=== PATIENT | male | born 1985 | race Caucasian/White ===

== ENCOUNTER 2017-09-20 13:23 | Inpatient (IN) | payer OTHER ==
[2017-09-20] MEDS ORDERED: SODIUM CHLORIDE 1,000 ML IV STA ×2 (14:11→15:32)
--- NOTE | 2017-09-20 14:11 | PDOC ---
History of Present Illness <Sade Walter - Last Filed: 09/20/17 16:56> - History of Present Illness Initial Comments: 09/20/17 14:28 The patient is a 32 year old male with a history of HLD, Elevated liver enzymes s/p cholecystectomy who presents for evaluation of abdominal pain. The patient reports a 1 day history of nausea and multiple episodes of non-bilious, non- bloody vomiting with associated epigastric and RUQ abdominal pain. The patient has had prior presentations with similar symptoms and follows with Dr. Khan. The patient notes that he has had CBD stents in the past, but none currently. The patient noted fevers at home to 103 prompting his presentation to the ED for further evaluation. He otherwise denies chills, SOB, chest pain, or changes with urination or bowel movements. <Robinson Gonzalez - Last Filed: 09/20/17 17:39> - General Chief Complaint: Pain, Acute Stated Complaint: FEVER Time Seen by Provider: 09/20/17 13:59 Past History <Sade Walter - Last Filed: 09/20/17 16:56> - Past Medical History Anemia: No Asthma: No Cancer: No Cardiac Disorders: No CVA: No COPD: No CHF: No Dementia: No Diabetes: No GI Disorders: Yes (hiatal hernia) Disorders: Yes (elevated LFTS, CGT, and Actin levels) HTN: No Hypercholesterolemia: Yes Liver Disease: No Seizures: No Thyroid Disease: No - Surgical History Abdominal Surgery: No Appendectomy: No Cardiac Surgery: No Cholecystectomy: Yes Lung Surgery: No Neurologic Surgery: No Orthopedic Surgery: No - Immunization History Immunization Up to Date: Yes - Suicide/Smoking/Psychosocial Hx Smoking History: Never smoked Have you smoked in the past 12 months: No Number of Cigarettes Smoked Daily: 0 Cigars Per Day: 0 Hx Alcohol Use: No Drug/Substance Use Hx: No Substance Use Type: None Hx Substance Use Treatment: No <Robinson Gnozalez - Last Filed: 09/20/17 17:39> - Past Medical History Allergies/Adverse Reactions: Allergies Allergy/AdvReac Type Severity Reaction Status Date / Time No Known Allergies Allergy Verified 09/20/17 13:31 Home Medications: Ambulatory Orders Colestipol HCl [Colestid -] 2 gm PO BID 01/31/16 Ezetimibe [Zetia] 10 mg PO DAILY 01/31/16 Pantoprazole Sodium [Protonix] 40 mg PO DAILY 01/31/16 Review of Systems - Review of Systems Comments:: 09/20/17 14:32 Constitutional: Fevers. No chills, fatigue, malaise HEENT: No Rhinorrhea, nasal congestion, visual changes Cardiovascular: No chest pain, syncope, palpitations, lightheadedness Respiratory: No Cough, SOB, Hemoptysis, Gastrointestinal: Abdominal pain, nausea, vomiting. No Constipation, Diarrhea, Melena Genitourinary: No Dysuria, Frequency, Urgency, Hesitancy, Hematuria, Flank pain Musculoskeletal: No Myalgia, arthralgia Skin: No rashes, itching, bruising, pallor Neurologic: No Headache, Dizziness, Numbness, Weakness, or Tingling Psychiatric: No Hallucinations. No SI or HI <Robinson Gonzalez - Last Filed: 09/20/17 17:39> *Physical Exam - Vital Signs Last Vital Signs Temp Pulse Resp BP Pulse Ox 102.6 F H 109 H 19 137/80 97 09/20/17 13:31 09/20/17 13:31 09/20/17 13:31 09/20/17 13:31 09/20/17 13:31 <Sade Walter - Last Filed: 09/20/17 16:56> - Vital Signs Last Vital Signs Temp Pulse Resp BP Pulse Ox 102.6 F H 109 H 19 137/80 97 09/20/17 13:31 09/20/17 13:31 09/20/17 13:31 09/20/17 13:31 09/20/17 13:31 - Physical Exam Comments: 09/20/17 14:32 General Appearance: Nourished. In Mild Apparent Distress HEENT: EOMI, [place]. No Pharyngeal Erythema, Tonsillar Exudate, Tonsillar Erythema Neck: No Cervical Lymphadenopathy Respiratory/Chest: Lungs Clear, Normal Breath Sounds. No Crackles, Rales, Rhonchi, Wheezing Cardiovascular: Regular Rhythm, Regular Rate. No Murmur, Gallops, Rubs Gastrointestinal/Abdominal: Normal Bowel Sounds, Tenderness to palpation in the epigastric and RUQ regions with guarding on exam. No Rebound, Musculoskeletal: No CVA Tenderness Extremity: Normal Capillary Refill Integumentary: Normal Color, Dry, Warm Neurologic: Fully Oriented, Alert, Normal Mood/Affect, Normal Response, <Robinson Gonzalez - Last Filed: 09/20/17 17:39> Heart Score/ECG Review #1 ECG reviewed & interpreted by me at: 17:39 General ECG Interpretation: Sinus Rhythm, Normal Rate, Normal Intervals, No acute ischemic changes <Robinson Gonzalez - Last Filed: 09/20/17 17:39> ED Treatment Course - LABORATORY CBC & Chemistry Diagram: 09/20/17 14:16 09/20/17 14:16 - ADDITIONAL ORDERS Additional order review: Laboratory Results 09/20/17 09/20/17 09/20/17 14:16 14:16 14:16 PT with INR 12.70 INR 1.12 PTT (Actin FS) 29.8 Sodium 139 Potassium 3.8 Chloride 104 Carbon Dioxide 25 Anion Gap 10 BUN 12 Creatinine 1.2 D Creat Clearance w eGFR > 60 Random Glucose 159 H D Lactic Acid 1.2 Calcium 9.2 Total Bilirubin 3.1 H D AST 586 H D ALT 839 H D Alkaline Phosphatase 344 H D Troponin I < 0.02 Total Protein 7.6 Albumin 4.3 Lipase 99 09/20/17 14:16 RBC 4.68 MCV 90.7 MCHC 34.1 RDW 13.2 MPV 9.2 D Neutrophils % 94.6 H D Lymphocytes % 2.3 L D Monocytes % 2.9 L Eosinophils % 0.1 D Basophils % 0.1 - Medications Given in the ED: ED Medications Discontinued Medications Generic Name Dose Route Start Last Admin Trade Name Freq PRN Reason Stop Dose Admin Acetaminophen 1,000 mg 09/20/17 14:20 09/20/17 14:35 Ofirmev Injection - IVPB 09/20/17 14:21 1,000 mg ONCE ONE Administration Sodium Chloride 1,000 mls @ 1,000 mls/hr 09/20/17 14:11 09/20/17 14:35 Normal Saline - IV 09/20/17 15:10 1,000 mls/hr ASDIR STA Administration Morphine Sulfate 4 mg 09/20/17 14:37 09/20/17 14:43 Morphine Injection - IVPUSH 09/20/17 14:38 4 mg ONCE ONE Administration - Consult/PCP Time Called: 16:12 (Paged Dr. Saul Vásquez's group who covers Welsh. ) - Additional Consults Time Called: 16:34 (Awaiting call back from GI (Erin is covered by [facility])) Consult/PCP: Dr. Aguilar Reason/Comments: 2nd page @ 16:57 <Sade Walter - Last Filed: 09/20/17 16:56> - LABORATORY CBC & Chemistry Diagram: 09/20/17 14:16 09/20/17 14:16 <Robinson Gonzalez - Last Filed: 09/20/17 17:39> Medical Decision Making - Medical Decision Making 09/20/17 14:34 The patient is a 32 year old male with a history of HLD, Elevated liver enzymes s/p cholecystectomy who presents for evaluation of abdominal pain. Differential includes but is not limited to: Pancreatitis, Choledocholethiasis, Infectious, Metabolic derangement. Given the patient's history and physical exam, we will obtain a cbc, cmp, lactate, lipase, blood cultures, ekg, ua, urine cultures, chest plain film, RUQ US to evaluate further for possible etiologies. We will treat with iv fluids, iv tylenol, morphine here in the ED. We will continue to monitor and reassess in the meantime. 09/20/17 17:27 CBC demonstrates an elevated wbc to 16 with 10% bands. CMP demonstrates an elevated t.bili to 3.1 with elevated liver enzymes. RUQ US did not demonstrate any CBD dilation as read by our radiologist. Given the patient's lab results and clinical picture, we are concerned for a cholangitis and have treated the patient with zosyn. The patient will require admission for further management. We discussed the case with Dr. Almonte who accepted the patient for admission. We have placed a page for Dr. Aguilar who covers for the patient's GI Dr. Khan. <Robinson Gonzalez - Last Filed: 09/20/17 17:39> *DC/Admit/Observation/Transfer <Sade Walter - Last Filed: 09/20/17 16:56> - Discharge Dispostion Decision to Admit order: Yes <Robinson Gonzalez - Last Filed: 09/20/17 17:39> Diagnosis at time of Disposition: Transaminitis Abdominal pain Qualifiers: Abdominal location: unspecified location Qualified Code(s): R10.9 - Unspecified abdominal pain Fever Qualifiers: Fever type: unspecified Qualified Code(s): R50.9 - Fever, unspecified - Discharge Dispostion Condition at time of disposition: Stable - Referrals Referrals: Valentín Welsh MD [Primary Care Provider] - - Patient Instructions - Post Discharge Activity
[2017-09-20] MEDS ORDERED: ACETAMINOPHEN 1000 MG/100 ML VIAL (NON FORMULARY) IVPB ONE (14:20)
[2017-09-20] MEDS ORDERED: ACETAMINOPHEN INJECTION 100 ML IVPB ONE (14:29)
[2017-09-20] MEDS ORDERED: morphine CARPU-JECT 4 MG/1 ML DISP.SYRIN IVPUSH ONE ×2 (14:37→17:29)
[2017-09-20] MEDS ORDERED: morphine SULFATE 4 MG/ML VIAL ONE (14:39)
[2017-09-20 14:54] LABS: BASO % 0.1 % (0-2.0); EOS % 0.1 % (0-4.5); HEMATOCRIT 42.5 % (35.4-49); HEMOGLOBIN 14.5 GM/dL (11.7-16.9); INR 1.12 (0.82-1.09); LYMPH % 2.3 % (8-40); MCH 30.9 pg (25.7-33.7); MCHC 34.1 g/dl (32.0-35.9); MEAN CELL VOLUME 90.7 fl (80-96); MEAN PLT VOLUME 9.2 fl (7.5-11.1); MONO % 2.9 % (3.8-10.2); NEUT % 94.6 % (42.8-82.8); PLATELET COUNT 243 K/MM3 (134-434); PROTHROMBIN TIME (PATIENT) 12.7 SEC (9.7-13.0); RBC 4.68 M/mm3 (4.00-5.60); RDW 13.2 % (11.9-15.9); WHITE BLOOD COUNT 16.4 K/mm3 (4.0-10.0)
[2017-09-20 14:57] LABS: ACTIVATED PTT 29.8 SECONDS (26.9-34.4)
[2017-09-20 15:07] LABS: ALBUMIN 4.3 g/dl (3.4-5.0); ANION GAP 10 (8-16); BLOOD UREA NITROGEN 12 mg/dL (7-18); CALCIUM 9.2 mg/dL (8.5-10.1); CHLORIDE 104 mmol/L (98-107); CO2 25 mmol/L (21-32); CREATININE 1.2 mg/dL (0.7-1.3); GLUCOSE,RANDOM 159 mg/dL (74-106); LIPASE 99 U/L (73-393); POTASSIUM 3.8 mmol/L (3.5-5.1); SODIUM 139 mmol/L (136-145)
[2017-09-20 15:10] LABS: ALK PHOS 344 U/L (45-117); BILIRUBIN,TOTAL 3.1 mg/dL (0.2-1.0); SGOT/AST 586 U/L (15-37); SGPT/ALT 839 U/L (12-78); TOT PROT 7.6 g/dl (6.4-8.2)
[2017-09-20] MEDS ORDERED: PIPERACILLIN/TAZOB 4.5 GM 4.5 GM in DEXTROSE 5%-WATER - 100 ML IVPB ONE (15:30)
[2017-09-20] MEDS ORDERED: PIPERACILLIN/TAZOB 4.5 GM 4.5 GM/100 ML BAG IVPB ONE (16:11)
[2017-09-20 16:26] LABS: PLATELET ESTIMATE ADEQUATE
[2017-09-20] MEDS ORDERED: ACETAMINOPHEN 325 MG TABLET (FP) PO PRN (16:55)
[2017-09-20] MEDS: D5-1/2NS+20 MEQ KCL - 20 MEQ/1,000 ML INFUS.BAG IV SCH (17:26)
[2017-09-20] MEDS ORDERED: morphine CARPU-JECT 2 MG/1 ML DISP.SYRIN ONE (17:31)
--- NOTE | 2017-09-20 18:32 | PDOC ---
Attending Attestation - Resident Resident Name: Robinson Gonzalez - ED Attending Attestation I have performed the following: I have examined & evaluated the patient, The case was reviewed & discussed with the resident, I agree w/resident's findings & plan, Exceptions are as noted - HPI HPI: 09/20/17 18:31 Patient is a 32M, with PMHx of HLD, elevated liver enzymes s/p cholecystectomy, who presents to the ED for 1 day of abdominal pain. The patient reports 1 day of nausea, non-bilious, non bloody vomit with associated epigastric and RUQ pain. He describes his abdominal pain as sharp and stabbing. The patient states that he has experienced similar symptoms before. The patient reports past common bile duct stents in the past. The patient also notes fever of 103 at home. He denies chills, chest pain, SOB, or changes with urination or bowel movements. GI: Dr. Lele Khan (covered by Lauren) Surgical Hx: Cholecystectomy - Physicial Exam PE: 09/20/17 18:31 GENERAL: Febrile (102.6) Awake, alert, and fully oriented, in no acute distress HEAD: No signs of trauma EYES: PERRLA, EOMI, sclera anicteric, conjunctiva clear ENT: Auricles normal inspection, hearing grossly normal, nares patent, oropharynx clear without exudates. Moist mucosa NECK: Normal ROM, supple, no lymphadenopathy, JVD, or masses LUNGS: Breath sounds equal, clear to auscultation bilaterally. No wheezes, and no crackles HEART: Tachycardic (109). Regular rate and rhythm, normal S1 and S2, no murmurs , rubs or gallops ABDOMEN: Soft, tenderness to palpation of episgastric and RUQ, normoactive bowel sounds. Guarding, no rebound. No masses EXTREMITIES: Normal range of motion, no edema. No clubbing or cyanosis. No cords, erythema, or tenderness BACK: No midline spinal tenderness in cervical/thoracic/lumbar region NEUROLOGICAL: Normal speech, cranial nerves intact, negative pronator drift, 5/ 5 strength in all 4 extremities, normal sensation to light touch in all 4 extremities, normal cerebellar exam, normal gait, normal reflexes and tone SKIN: Warm, Dry, normal turgor, no rashes or lesions noted. - Medical Decision Making 06/10/18 18:31 Pt admitted for presumed choledocholthiasis vs cholangitis. Covered with Dr. Lauren Myers covered.
[2017-09-20] MEDS ORDERED: PT OWN MED DRAWER 7, Y5N ONE (22:46)
[2017-09-21] MEDS: CHOLESTYRAMINE/ASPARTAME 4 GM PACKET PO SCH ×2 (00:03→15:14)
[2017-09-21] MEDS: morphine SULFATE 4 MG/ML VIAL IVPUSH PRN ×2 (00:14→10:40)
[2017-09-21] MEDS: D5-1/2NS+20 MEQ KCL - 20 MEQ/1,000 ML INFUS.BAG IV SCH ×2 (02:49→17:54)
[2017-09-21 06:18] LABS: URINE APPEARANCE CLEAR; URINE BLOOD NEGATIVE (NEGATIVE); URINE COLOR AMBER; URINE GLUCOSE (UA) NEGATIVE (NEGATIVE); URINE KETONE NEGATIVE (NEGATIVE); URINE LEUK ESTERASE NEGATIVE (NEGATIVE); URINE NITRITE NEGATIVE (NEGATIVE); URINE PROTEIN NEGATIVE (NEGATIVE); URINE UROBILINOGEN 4.0 E.U/dl mg/dL (0.2-1.0)
[2017-09-21 08:13] LABS: BASO % 0.5 % (0-2.0); HEMATOCRIT 35.8 % (35.4-49); HEMOGLOBIN 12.7 GM/dL (11.7-16.9); LYMPH % 13.7 % (8-40); MCH 32.1 pg (25.7-33.7); MCHC 35.5 g/dl (32.0-35.9); MEAN CELL VOLUME 90.5 fl (80-96); MEAN PLT VOLUME 9.2 fl (7.5-11.1); MONO % 6.4 % (3.8-10.2); NEUT % 78.4 % (42.8-82.8); PLATELET COUNT 213 K/MM3 (134-434); RBC 3.95 M/mm3 (4.00-5.60); RDW 13.4 % (11.9-15.9); WHITE BLOOD COUNT 8.1 K/mm3 (4.0-10.0)
[2017-09-21 08:40] LABS: ALBUMIN 3.5 g/dl (3.4-5.0); ALK PHOS 254 U/L (45-117); ANION GAP 5 (8-16); BILIRUBIN,TOTAL 4.2 mg/dL (0.2-1.0); BLOOD UREA NITROGEN 6 mg/dL (7-18); CALCIUM 8.3 mg/dL (8.5-10.1); CHLORIDE 108 mmol/L (98-107); CO2 26 mmol/L (21-32); CREATININE 0.9 mg/dL (0.7-1.3); GLUCOSE,RANDOM 108 mg/dL (74-106); POTASSIUM 3.7 mmol/L (3.5-5.1); SGOT/AST 228 U/L (15-37); SODIUM 139 mmol/L (136-145); TOT PROT 6.3 g/dl (6.4-8.2)
[2017-09-21 08:41] VITALS: BMI 34.6
--- NOTE | 2017-09-21 08:49 | EKG ---
Test Reason : Blood Pressure : / mmHG Vent. Rate : 092 BPM Atrial Rate : 092 BPM P-R Int : 120 ms QRS Dur : 082 ms QT Int : 328 ms P-R-T Axes : 023 041 023 degrees QTc Int : 405 ms NORMAL SINUS RHYTHM NORMAL ECG WHEN COMPARED WITH ECG OF 08-SEP-2015 03:18, NO SIGNIFICANT CHANGE WAS FOUND Confirmed by SUHAIL DAVIS MD ([id number]) on 09/21/2017 8:49:12 AM Referred By: Confirmed By:SUHAIL DAVIS MD
[2017-09-21 08:51] LABS: SGPT/ALT 615 U/L (12-78)
--- NOTE | 2017-09-21 11:39 | HP ---
Admitting History and Physical - Primary Care Physician PCP: Valentín Welsh - Admission History of Present Illness: pt seen/ examined chart reviewed Er records reviewed per Er records The patient is a 32 year old male with a history of HLD, Elevated liver enzymes s/p cholecystectomy who presents for evaluation of abdominal pain. The patient reports a 1 day history of nausea and multiple episodes of non-bilious, non- bloody vomiting with associated epigastric and RUQ abdominal pain. The patient has had prior presentations with similar symptoms and follows with Dr. Khan. The patient notes that he has had CBD stents in the past, but none currently. The patient noted fevers at home to 103 prompting his presentation to the ED for further evaluation. He otherwise denies chills, SOB, chest pain, or changes with urination or bowel movements. pts lfts significantly elevated given abx for concern of cholangitis u/s unremarkable. Pt seen today feels better denies pain. chart reviewed pt dont drink/ smoke. History Source: Patient Limitations to Obtaining History: No Limitations - Past Medical History Cardiovascular: Yes: Hyperlipdemia. No: HTN Hepatobiliary: Yes: Cholelithiasis - Past Surgical History Past Surgical History: Yes: Cholecystectomy - Smoking History Smoking history: Never smoked Have you smoked in the past 12 months: No Aproximately how many cigarettes per day: 0 - Alcohol/Substance Use Hx Alcohol Use: No History of Substance Use: reports: None - Social History ADL: Independent Occupation: student History of Recent Travel: No Home Medications - Allergies Allergies/Adverse Reactions: Allergies Allergy/AdvReac Type Severity Reaction Status Date / Time No Known Allergies Allergy Verified 09/20/17 13:31 - Home Medications Home Medications: Ambulatory Orders Colestipol HCl [Colestid -] 2 gm PO BID 01/31/16 Ezetimibe [Zetia] 10 mg PO DAILY 01/31/16 Pantoprazole Sodium [Protonix] 40 mg PO DAILY 01/31/16 Family Disease History - Family Disease History Family History: Unremarkable Review of Systems - Review of Systems Constitutional: reports: Fever, Loss of Appetite, Weakness Eyes: reports: No Symptoms HENT: reports: No Symptoms Neck: reports: No Symptoms Cardiovascular: reports: No Symptoms Respiratory: reports: No Symptoms Gastrointestinal: reports: Abdominal Pain, Other (itching +) Genitourinary: reports: No Symptoms Musculoskeletal: reports: No Symptoms Integumentary: reports: No Symptoms Neurological: reports: No Symptoms Endocrine: reports: No Symptoms Hematology/Lymphatic: reports: No Symptoms Psychiatric: reports: No Symptoms Physical Examination Vital Signs: Vital Signs Temperature 98.6 F 09/21/17 06:00 Pulse Rate 66 09/21/17 06:00 Respiratory Rate 20 09/21/17 06:00 Blood Pressure 111/73 09/21/17 06:00 O2 Sat by Pulse Oximetry (%) 98 09/20/17 21:00 Constitutional: Yes: No Distress, Calm Eyes: Yes: Conjunctiva Clear HENT: Yes: WNL Neck: Yes: Supple, Trachea Midline Cardiovascular: Yes: Regular Rate and Rhythm Respiratory: Yes: CTA Bilaterally Gastrointestinal: Yes: Normal Bowel Sounds, Soft Edema: No Neurological: Yes: Alert Psychiatric: Yes: Alert Labs: CBC, BMP 09/21/17 07:55 09/21/17 07:55 Imaging - Results Chest X-ray: Report Reviewed Ultrasound: Report Reviewed EKG: Report Reviewed Problem List - Problems (1) Abdominal pain Code(s): R10.9 - UNSPECIFIED ABDOMINAL PAIN Qualifiers: Abdominal location: unspecified location Qualified Code(s): R10.9 - Unspecified abdominal pain (2) Fever Code(s): R50.9 - FEVER, UNSPECIFIED Qualifiers: Fever type: unspecified Qualified Code(s): R50.9 - Fever, unspecified (3) Transaminitis Code(s): R74.0 - NONSPEC ELEV OF LEVELS OF TRANSAMNS & LACTIC ACID DEHYDRGNSE Assessment/Plan clinically better lfts tending down continue abx gi to follow check hepatitis profile Likely will need further testing mrcp ? Liver biopsy ? start on diet continue hydration ambulate will follow Discussed in detail with pt also. Will discuss with Dr. Khan
[2017-09-21] MEDS ORDERED: DEXTROSE 5%-WATER - 50 ML IVPB ONE (12:24)
[2017-09-21] MEDS ORDERED: PT OWN MED DRAWER 7, Y5N ONE (12:24)
[2017-09-21] MEDS ORDERED: cefTRIAXone SODIUM 1 GM VIAL ONE (12:24)
[2017-09-21] MEDS: CEFTRIAXONE 1 GM in DEXTROSE 5%-WATER - 50 ML IVPB SCH (12:25)
[2017-09-21] MEDS: PANTOPRAZOLE 40 MG TABLET (FP) PO SCH (12:31)
--- NOTE | 2017-09-21 15:57 | CON.GI ---
Consult Consult Specialty:: Gastroenterology Referred by:: Dr. Vásquez Reason for Consultation:: Fever, Abdominal Pain - History of Present Illness Chief Complaint: Fevers History of Present Illness: Patient is a 32 year old male with a PMHx of HLD, elevated liver enzymes who presented for abdominal pain associated with fevers. Patient reports he's had three fevers in the month of August but yesterday he measured a temperature of 104 , which prompted this hospital visit. Patient reports sharp, nonradiating epigastric and RUQ abdominal that has resolved today. Patient states he's has similar episodes of this before and was found to have Choledocholithiasis/ cholangitis and states he is now more aware of fevers. Patient in the ED was found to have leukocytosis, fevers, transaminitis, and elevated t.bili. Of note, patient had MRCP done two years ago, which revealed choldocholithiasis/ Cholangitis and had Sphincterectomy with stent placement done. Patient has been following up with his GI, Dr. Khan, and is in the process of ruling out autoimmune hepatitis due to consistently elevated. Patient denies jaundice, rash, pruritis, bowel changes, changes to diet, fever, joint pain, weight loss, fatigue, melena, hematochezia, hematemesis, hematuria, hepatitis, transfusions, chest pain, palpitations, shortness of breath, headaches. - History Source History Provided By: Patient Limitations to Obtaining History: No Limitations - Past Medical History Cardio/Vascular: Yes: Hyperlipdemia Gastrointestinal: Yes: Hiatal Hernia Hepatobiliary: Yes: Cholelithiasis, Choledocholithiasis - Past Surgical History Past Surgical History: Yes: Cholecystectomy, Upper Endoscopy Additional Surgical History: Sphincterotomy, ERCP - Alcohol/Substance Use Hx Alcohol Use: No History of Substance Use: reports: None - Smoking History Smoking history: Never smoked Have you smoked in the past 12 months: No Aproximately how many cigarettes per day: 0 - Social History ADL: Independent Occupation: student History of Recent Travel: No <Racheal Salas - Last Filed: 09/21/17 16:48> Home Medications <Racheal Salas - Last Filed: 09/21/17 16:48> <Primo Aguilar - Last Filed: 09/22/17 09:51> - Allergies Allergies/Adverse Reactions: Allergies Allergy/AdvReac Type Severity Reaction Status Date / Time No Known Allergies Allergy Verified 09/20/17 13:31 Family Disease History - Family Disease History Family History: Denies <Racheal Salas - Last Filed: 09/21/17 16:48> Review of Systems - Review of Systems Constitutional: reports: Fever. denies: Chills, Diaphoresis, Night Sweats HENT: reports: No Symptoms. denies: Difficult Swallowing, Mouth Swelling Cardiovascular: reports: No Symptoms. denies: Chest Pain, Edema, Palpitations, Shortness of Breath Respiratory: reports: No Symptoms. denies: Cough, Hemoptysis, SOB, SOB on Exertion, Wheezing Gastrointestinal: reports: Abdominal Pain, Nausea, Vomiting. denies: Constipation, Dysphagia, Indigestion, Melena, Vomiting Blood Genitourinary: reports: No Symptoms, Discharge. denies: Burning, Dysuria, Flank Pain, Hematuria Neurological: reports: No Symptoms. denies: Confusion, Dizziness <Racheal Salas - Last Filed: 09/21/17 16:48> Physical Exam-GI Vital Signs: Vital Signs Temperature 98.4 F 09/21/17 14:46 Pulse Rate 54 L 09/21/17 14:46 Respiratory Rate 18 09/21/17 14:46 Blood Pressure 106/61 09/21/17 14:46 O2 Sat by Pulse Oximetry (%) 98 09/20/17 21:00 Constitutional: Yes: Well Nourished, No Distress, Calm Eyes: Yes: Conjunctiva Clear, PERRL. No: Ptosis, Sclera Icterus HENT: Yes: WNL, Atraumatic, Normocephalic Neck: Yes: WNL, Supple, Trachea Midline Cardiovascular: Yes: WNL, Regular Rate and Rhythm. No: Bradycardia, Tachycardia Respiratory: Yes: WNL, Regular, CTA Bilaterally. No: Accessory Muscle Use, Cough, Rales, Rhonchi, SOB, Stridor, Tachypnea, Wheezes Gastrointestinal Inspection: Yes: WNL. No: Ascites, Distention, Hernia, Scars ...Auscultate: Yes: Normoactive Bowel Sounds ...Palpate: No: Firm/Rigid, Guarding, Hepatomegaly, Splenomegaly, Tenderness, Tenderness, Epigastium, Tenderness, Rebound ...Percussion: No: Dullness, Fluid Wave, Tympanitic ...Rectal Exam: Yes: Deferred Extremities: Yes: WNL. No: Amputation, Calf Tenderness, Erythema Edema: No Neurological: Yes: WNL, Alert, Oriented. No: Dysarthria, Seizure, Tremors Psychiatric: Yes: WNL, Alert, Oriented Labs: CBC, BMP 09/21/17 07:55 09/21/17 07:55 INR, PTT INR 1.12 (0.82-1.09) 09/20/17 14:16 <Racheal Salas - Last Filed: 09/21/17 16:48> Vital Signs: Vital Signs Temperature 98.3 F 09/22/17 09:28 Pulse Rate 53 L 09/22/17 09:28 Respiratory Rate 18 09/22/17 09:28 Blood Pressure 133/72 09/22/17 09:28 O2 Sat by Pulse Oximetry (%) 97 09/21/17 21:00 Labs: CBC, BMP 09/22/17 06:45 09/22/17 06:45 INR, PTT INR 1.15 (0.82-1.09) H 09/22/17 06:45 <Primo Aguilar - Last Filed: 09/22/17 09:51> Imaging - Results Ultrasound: Report Reviewed, Image Reviewed <Racheal Salas - Last Filed: 09/21/17 16:48> Problem List - Problems (1) Transaminitis Assessment/Plan: Patient has a 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 Patient currently being worked up by Dr. Khan as outpatient. Patient's transamines trending down. MRCP ordered to rule out choldocholithiasis/Cholangitis with ERCP if there are finding. Will continue to monitor Hepatic panel daily. Continue IV hydration, IV Abx, and pain control. Patient currently tolerating diet and denies any abdominal pain. May continue Diet. Will need further hepatic workup such as autoimmune hepatitis. Code(s): R74.0 - NONSPEC ELEV OF LEVELS OF TRANSAMNS & LACTIC ACID DEHYDRGNSE (2) Abdominal pain Code(s): R10.9 - UNSPECIFIED ABDOMINAL PAIN Qualifiers: Abdominal location: unspecified location Qualified Code(s): R10.9 - Unspecified abdominal pain (3) Fever Code(s): R50.9 - FEVER, UNSPECIFIED Qualifiers: Fever type: unspecified Qualified Code(s): R50.9 - Fever, unspecified (4) Hepatic steatosis Assessment/Plan: Shown on U/S Currently being followed in out patient GI Code(s): K76.0 - FATTY (CHANGE OF) LIVER, NOT ELSEWHERE CLASSIFIED <Racheal Salas - Last Filed: 09/21/17 16:48> Assessment/Plan The patient was seen and examined. Prior admissions records reviewed. Rule out extrahepatic biliary duct obstruction, choledocholithiasis, stricture. Follow MRCP results. Continue antibiotics. Continue low-fat diet. Daily labs. Discussed with the resident and the patient. <Primo Aguilar - Last Filed: 09/22/17 09:51>
[2017-09-22] MEDS: morphine SULFATE 4 MG/ML VIAL IVPUSH PRN ×2 (03:31→18:47)
[2017-09-22 06:06] LABS: HEP.C VIRUS AB 0.1 s/co ratio (0.0-0.9)
[2017-09-22 06:55] LABS: BASO % 0.6 % (0-2.0); EOS % 2.2 % (0-4.5); HEMATOCRIT 38.9 % (35.4-49); HEMOGLOBIN 13.5 GM/dL (11.7-16.9); LYMPH % 11.9 % (8-40); MCH 31.9 pg (25.7-33.7); MCHC 34.8 g/dl (32.0-35.9); MEAN CELL VOLUME 91.6 fl (80-96); MONO % 5.2 % (3.8-10.2); NEUT % 80.1 % (42.8-82.8); PLATELET COUNT 213 K/MM3 (134-434); RBC 4.25 M/mm3 (4.00-5.60); RDW 13.4 % (11.9-15.9); WHITE BLOOD COUNT 8.4 K/mm3 (4.0-10.0)
[2017-09-22 07:08] LABS: INR 1.15 (0.82-1.09)
[2017-09-22 07:52] LABS: CHLORIDE 104 mmol/L (98-107); POTASSIUM 4.1 mmol/L (3.5-5.1); SODIUM 139 mmol/L (136-145)
[2017-09-22 08:25] LABS: ALBUMIN 3.8 g/dl (3.4-5.0); ALK PHOS 276 U/L (45-117); ANION GAP 9 (8-16); BILIRUBIN,TOTAL 2.9 mg/dL (0.2-1.0); BLOOD UREA NITROGEN 7 mg/dL (7-18); CALCIUM 8.9 mg/dL (8.5-10.1); CO2 26 mmol/L (21-32); CREATININE 0.9 mg/dL (0.7-1.3); GLUCOSE,RANDOM 116 mg/dL (74-106); SGOT/AST 159 U/L (15-37); TOT PROT 7.2 g/dl (6.4-8.2)
[2017-09-22 08:28] LABS: SGPT/ALT 560 U/L (12-78)
[2017-09-22] MEDS ORDERED: PT OWN MED DRAWER 7, Y5N ONE (09:25)
[2017-09-22] MEDS ORDERED: DEXTROSE 5%-WATER - 50 ML IVPB ONE (09:26)
[2017-09-22] MEDS ORDERED: cefTRIAXone SODIUM 1 GM VIAL ONE (09:26)
[2017-09-22] MEDS: D5-1/2NS+20 MEQ KCL - 20 MEQ/1,000 ML INFUS.BAG IV SCH ×2 (09:32→17:18)
[2017-09-22] MEDS: CHOLESTYRAMINE/ASPARTAME 4 GM PACKET PO SCH (09:33)
[2017-09-22] MEDS: PANTOPRAZOLE 40 MG TABLET (FP) PO SCH (09:33)
--- NOTE | 2017-09-22 09:48 | CONSULT ---
Consult Consult Specialty:: Infectious Disease Referred by:: Dr. Luque Reason for Consultation:: Bacteremia - History of Present Illness Chief Complaint: Abdominal Pain and fevers History of Present Illness: 32M with PMH of HLD presents to the ED with fever and abdominal pain. He states he has had RUQ abdominal pain nausea and NB/NB vomiting for a day before coming to the ER. He also had 3 fevers in august highest being 103. 2 days ago the patient endorses he had a 104 fever he measured at home. Patient has had recurrent abdominal pain and notes "All of my problems started in 2014." He is being worked up to investigate elevated T bili and other liver enzymes. Patient may have autoimmune hepatitis but he is unsure. Patient has had a cholecystectomy and states he has had about 7 ERCPs with stents. He currently does not have any stents. He was once sent to [facility] for advanced ERCP. Was treated for biliary sepsis in the past about 2 years ago. Asked to evaluate patient due to 1 out of 4 bottle being positive on blood cultures. - History Source History Provided By: Patient - Past Medical History Gastrointestinal: Yes: Hiatal Hernia Hepatobiliary: Yes: Cholelithiasis, Choledocholithiasis - Past Surgical History Past Surgical History: Yes: Cholecystectomy, Upper Endoscopy Additional Surgical History: Exploratory Laparoscopy done after laparoscopic cholecystectomy, Sphincterotomy, ERCP - Alcohol/Substance Use Hx Alcohol Use: No History of Substance Use: reports: None - Smoking History Smoking history: Never smoked Have you smoked in the past 12 months: No Aproximately how many cigarettes per day: 0 - Social History ADL: Independent Occupation: student History of Recent Travel: No Home Medications - Allergies Allergies/Adverse Reactions: Allergies Allergy/AdvReac Type Severity Reaction Status Date / Time No Known Allergies Allergy Verified 09/20/17 13:31 Family Disease History - Family Disease History Family History: Denies Review of Systems - Review of Systems Constitutional: reports: Fever Respiratory: reports: No Symptoms, Other (constant clearing of throat) Gastrointestinal: reports: Abdominal Pain, Nausea, Vomiting. denies: Constipation, Diarrhea Genitourinary: reports: No Symptoms Musculoskeletal: reports: No Symptoms Integumentary: reports: No Symptoms Neurological: reports: No Symptoms Endocrine: reports: No Symptoms Hematology/Lymphatic: reports: No Symptoms Psychiatric: reports: No Symptoms Physical Exam Vital Signs: Vital Signs Temperature 98.3 F 09/22/17 09:28 Pulse Rate 53 L 09/22/17 09:28 Respiratory Rate 18 09/22/17 09:28 Blood Pressure 133/72 09/22/17 09:28 O2 Sat by Pulse Oximetry (%) 97 09/21/17 21:00 Constitutional: Yes: Well Nourished, No Distress, Calm, Obese Eyes: Yes: EOM Intact Neck: Yes: Supple Cardiovascular: Yes: Regular Rate and Rhythm, S1, S2. No: Murmur, Rub Respiratory: Yes: Regular, CTA Bilaterally. No: Accessory Muscle Use Gastrointestinal: Yes: Normal Bowel Sounds, Soft, Abdomen, Obese, Other ( discomfort on palpation in RUQ) Extremities: Yes: WNL Edema: No Neurological: Yes: Alert, Oriented Psychiatric: Yes: Alert, Oriented Labs: CBC, BMP 09/22/17 06:45 09/22/17 06:45 Imaging - Results Ultrasound: Report Reviewed, Image Reviewed MRI: Image Reviewed (report pending) Problem List - Problems (1) Choledocholithiasis Code(s): K80.50 - CALCULUS OF BILE DUCT W/O CHOLANGITIS OR CHOLECYST W/O OBST (2) Biliary sepsis Code(s): K83.0 - CHOLANGITIS (3) Abdominal pain Code(s): R10.9 - UNSPECIFIED ABDOMINAL PAIN Qualifiers: Abdominal location: unspecified location Qualified Code(s): R10.9 - Unspecified abdominal pain (4) Fever Code(s): R50.9 - FEVER, UNSPECIFIED Qualifiers: Fever type: unspecified Qualified Code(s): R50.9 - Fever, unspecified (5) Hepatic steatosis Code(s): K76.0 - FATTY (CHANGE OF) LIVER, NOT ELSEWHERE CLASSIFIED (6) Transaminitis Code(s): R74.0 - NONSPEC ELEV OF LEVELS OF TRANSAMNS & LACTIC ACID DEHYDRGNSE (7) Bacteremia Code(s): R78.81 - BACTEREMIA (8) Bacteremia due to coagulase-negative Staphylococcus Code(s): R78.81 - BACTEREMIA Assessment/Plan 32M with extensive biliary/hepatic medical history who presents to the hospital for fevers, nausea and abdominal pain. Suspect biliary source for fevers. Microbiology lab called and organism on blood cultures is coagulase negative. / bottle positive. Likely contaminant. continue work up for possible autoimmune hepatitis per GI f/u MRCP continue ceftriaxone/flagyl as patient seems to be improving clinically and on laboratory evaluation. Afebrile Thank you for this consultative opportunity case discussed with attending Dr. Mullen
[2017-09-22] MEDS: CEFTRIAXONE 1 GM in DEXTROSE 5%-WATER - 50 ML IVPB SCH (10:33)
--- NOTE | 2017-09-22 11:49 | PN ---
Progress Note, Physician Chief Complaint: Had pain in right upper quadrant this AM No further pain Nausea+ no appetite - Current Medication List Current Medications: Active Medications Cholestyramine Resin (Questran Light Packet -) 4 gm PO DAILY [facility] Last Admin: 09/22/17 09:33 Dose: 4 gm Potassium Chloride/Dextrose/Sod Cl (D5-1/2ns+20 Meq Kcl -) 20 meq in 1,000 mls @ 100 mls/hr IV ASDIR [facility] Last Admin: 09/22/17 09:32 Dose: 100 mls/hr Metronidazole (Flagyl 500mg Premixed Ivpb -) 500 mg in 100 mls @ 100 mls/hr IVPB Q8H-IV [facility] Last Admin: 09/22/17 09:33 Dose: 100 mls/hr Ceftriaxone Sodium 1 gm/ (Dextrose) 50 mls @ 100 mls/hr IVPB DAILY [facility] Last Admin: 09/22/17 10:33 Dose: 100 mls/hr Morphine Sulfate (Morphine Sulfate) 4 mg IVPUSH Q6H PRN PRN Reason: PAIN LEVEL 7 - 10 Last Admin: 09/22/17 03:31 Dose: 4 mg Pantoprazole Sodium (Protonix -) 40 mg PO DAILY [facility] Last Admin: 09/22/17 09:33 Dose: 40 mg - Objective Vital Signs: Vital Signs Temperature 98.3 F 09/22/17 09:28 Pulse Rate 53 L 09/22/17 09:28 Respiratory Rate 18 09/22/17 09:28 Blood Pressure 133/72 09/22/17 09:28 O2 Sat by Pulse Oximetry (%) 97 09/21/17 21:00 Constitutional: Yes: No Distress Cardiovascular: Yes: Regular Rate and Rhythm Respiratory: Yes: CTA Bilaterally Gastrointestinal: Yes: Normal Bowel Sounds, Soft, Abdomen, Obese. No: Tenderness Edema: No Labs: CBC, BMP 09/22/17 06:45 09/22/17 06:45 INR, PTT INR 1.15 (0.82-1.09) H 09/22/17 06:45 Problem List - Problems (1) Abdominal pain Code(s): R10.9 - UNSPECIFIED ABDOMINAL PAIN Qualifiers: Abdominal location: unspecified location Qualified Code(s): R10.9 - Unspecified abdominal pain (2) Biliary sepsis Code(s): K83.0 - CHOLANGITIS (3) Choledocholithiasis Code(s): K80.50 - CALCULUS OF BILE DUCT W/O CHOLANGITIS OR CHOLECYST W/O OBST (4) Hepatic steatosis Code(s): K76.0 - FATTY (CHANGE OF) LIVER, NOT ELSEWHERE CLASSIFIED Assessment/Plan PLAN ID eval noted continue with iv antibiotics awaiting MRCP results Clear liquids for now
--- NOTE | 2017-09-22 13:49 | PN ---
Teaching Attending Note Name of Resident: Andres Saavedra ATTENDING PHYSICIAN STATEMENT I saw and evaluated the patient. I reviewed the resident's note and discussed the case with the resident. I agree with the resident's findings and plan as documented. SUBJECTIVE: fevers resolved, some abdominal pain earlier today, now resolved OBJECTIVE: Vital Signs Period Temp Pulse Resp BP Sys/Pulido Pulse Ox Last 24 Hr 98 F-98.5 F 48-60 18-18 106-133/61-81 97-97 cor-rrr lungs clear abd soft,nt ext no edema CBC, BMP 09/22/17 06:45 09/22/17 06:45 Microbiology 09/20/17 15:20 Blood - Peripheral Venous Blood Culture - Preliminary Staphylococcus Coagulase Neg 09/21/17 05:00 Urine - Urine Clean Catch Urine Culture - Final NO GROWTH OBTAINED 09/20/17 14:16 Blood - Peripheral Venous Blood Culture - Preliminary NO GROWTH OBTAINED AFTER 24 HOURS, INCUBATION TO CONTINUE FOR 4 DAYS. ASSESSMENT AND PLAN: biliary sepsis awaiting mrcp results and cultures afebrile on ceftriaxone and flagyl to continue same antibiotics blood culture isolate is contaminant most likely-- no need to treat GI f/u Problem List - Problems (1) Biliary sepsis Code(s): K83.0 - CHOLANGITIS (2) Bacteremia due to coagulase-negative Staphylococcus Code(s): R78.81 - BACTEREMIA
--- NOTE | 2017-09-22 16:17 | PN ---
<LaurenPrimo - Last Filed: 09/22/17 18:06> Progress Note, Physician - Current Medication List Current Medications: Active Medications Cholestyramine Resin (Questran Light Packet -) 4 gm PO DAILY [facility] Last Admin: 09/22/17 09:33 Dose: 4 gm Potassium Chloride/Dextrose/Sod Cl (D5-1/2ns+20 Meq Kcl -) 20 meq in 1,000 mls @ 100 mls/hr IV ASDIR [facility] Last Admin: 09/22/17 17:18 Dose: Not Given Metronidazole (Flagyl 500mg Premixed Ivpb -) 500 mg in 100 mls @ 100 mls/hr IVPB Q8H-IV [facility] Last Admin: 09/22/17 17:18 Dose: 100 mls/hr Ceftriaxone Sodium 1 gm/ (Dextrose) 50 mls @ 100 mls/hr IVPB DAILY [facility] Last Admin: 09/22/17 10:33 Dose: 100 mls/hr Morphine Sulfate (Morphine Sulfate) 4 mg IVPUSH Q6H PRN PRN Reason: PAIN LEVEL 7 - 10 Last Admin: 09/22/17 03:31 Dose: 4 mg Pantoprazole Sodium (Protonix -) 40 mg PO DAILY [facility] Last Admin: 09/22/17 09:33 Dose: 40 mg - Objective Vital Signs: Vital Signs Temperature 98.6 F 09/22/17 13:46 Pulse Rate 57 L 09/22/17 13:46 Respiratory Rate 18 09/22/17 13:46 Blood Pressure 126/67 09/22/17 13:46 O2 Sat by Pulse Oximetry (%) 97 09/22/17 09:00 Labs: CBC, BMP 09/22/17 06:45 09/22/17 06:45 INR, PTT INR 1.15 (0.82-1.09) H 09/22/17 06:45 Impression/Plan Impression/Plan: MRI findings discussed with Hua Lawrence @ [facility]. Transfer for ERCP initiated <Racheal Salas - Last Filed: 09/24/17 15:39> Progress Note, Physician History of Present Illness: Patient seen and examined by me at bedside. Patient reports having RUQ abdominal pain this morning and required pain control with adequate control on morphine. Otherwise, patient denies fever, chills, nausea, vomiting, chest pain, palpitations, shortness of breath, diarrhea, constipation, headache, dysuria, hematuria, melena, hematochezia, hematemesis. - Current Medication List Current Medications: Active Medications Cholestyramine Resin (Questran Light Packet -) 4 gm PO DAILY [facility] Last Admin: 09/22/17 09:33 Dose: 4 gm Potassium Chloride/Dextrose/Sod Cl (D5-1/2ns+20 Meq Kcl -) 20 meq in 1,000 mls @ 100 mls/hr IV ASDIR [facility] Last Admin: 09/22/17 09:32 Dose: 100 mls/hr Metronidazole (Flagyl 500mg Premixed Ivpb -) 500 mg in 100 mls @ 100 mls/hr IVPB Q8H-IV [facility] Last Admin: 09/22/17 09:33 Dose: 100 mls/hr Ceftriaxone Sodium 1 gm/ (Dextrose) 50 mls @ 100 mls/hr IVPB DAILY [facility] Last Admin: 09/22/17 10:33 Dose: 100 mls/hr Morphine Sulfate (Morphine Sulfate) 4 mg IVPUSH Q6H PRN PRN Reason: PAIN LEVEL 7 - 10 Last Admin: 09/22/17 03:31 Dose: 4 mg Pantoprazole Sodium (Protonix -) 40 mg PO DAILY [facility] Last Admin: 09/22/17 09:33 Dose: 40 mg - Objective Vital Signs: Vital Signs Temperature 98.6 F 09/22/17 13:46 Pulse Rate 57 L 09/22/17 13:46 Respiratory Rate 18 09/22/17 13:46 Blood Pressure 126/67 09/22/17 13:46 O2 Sat by Pulse Oximetry (%) 97 09/22/17 09:00 Constitutional: Yes: Well Nourished, No Distress, Calm Eyes: Yes: Conjunctiva Clear, PERRL. No: Sclera Icterus, Tearing Cardiovascular: Yes: WNL, Regular Rate and Rhythm, S1, S2. No: Tachycardia, Pulse Irregular, Bruit, JVD, Murmur Respiratory: Yes: WNL, Regular, CTA Bilaterally. No: Accessory Muscle Use, Cough, Rales, Rhonchi, Tachypnea, Wheezes Gastrointestinal: Yes: Normal Bowel Sounds, Soft, Tenderness (mild upon palpation of RUQ). No: Ascites, Distention, Hepatomegaly Edema: No Neurological: Yes: WNL, Alert, Oriented. No: Ataxia, Dysarthria, Tremors Labs: 09/22/17 06:45 09/22/17 06:45 INR, PTT INR 1.15 (0.82-1.09) H 09/22/17 06:45 09/22/17 06:45 Total Bilirubin 2.9 H D AST 159 H D ALT 560 H Alkaline Phosphatase 276 H - ....Imaging MRI: Report Reviewed, Image Reviewed Problem List - Problems (1) Choledocholithiasis with obstruction Assessment/Plan: -MRCP reviewed and patient has markedly dialted CBD with intrahepatic biliary ductal dilation and obstructive filling defect in distal CBD as well as a stricture. Will need to transfer patient to tertiary center at [facility] for evaluation and ERCP by Dr. Hua Lawrence. Patient hs history of complicated ERCP due to stricture and hemorrhage during procedure. -Patient is not toxic appearing and transaminase stable/trending down -Transfer in progress - Code(s): K80.51 - CALCULUS OF BILE DUCT W/O CHOLANGITIS OR CHOLECYST W OBST (2) Transaminitis Assessment/Plan: -Trending down. Continue to monitor daily . Code(s): R74.0 - NONSPEC ELEV OF LEVELS OF TRANSAMNS & LACTIC ACID DEHYDRGNSE (3) Abdominal pain Assessment/Plan: -Complained of RUQ abdominal pain this morning with adequate pain control on morphine. Patient found to have Choledocholithiasis with distal CBD obstruction and stricture. -Continue pain control -Initiating transfer to tertiary center for ERCP due to history of complicated ERCP Code(s): R10.9 - UNSPECIFIED ABDOMINAL PAIN Qualifiers: Abdominal location: unspecified location Qualified Code(s): R10.9 - Unspecified abdominal pain (4) Fever Code(s): R50.9 - FEVER, UNSPECIFIED Qualifiers: Fever type: unspecified Qualified Code(s): R50.9 - Fever, unspecified (5) Hepatic steatosis Assessment/Plan: Shown on U/S Currently being followed in out patient GI and is being monitored as outpatient Code(s): K76.0 - FATTY (CHANGE OF) LIVER, NOT ELSEWHERE CLASSIFIED Visit type - Emergency Visit Emergency Visit: Yes ED Registration Date: 09/20/17 Care time: The patient presented to the Emergency Department on the above date and was hospitalized for further evaluation of their emergent condition. - New Patient This patient is new to me today: Yes Date on this admission: 09/20/17 - Critical Care Critical Care patient: No
--- NOTE | 2017-09-22 19:11 | DS ---
Physical Examination Vital Signs: Vital Signs Temperature 98.6 F 09/22/17 13:46 Pulse Rate 57 L 09/22/17 13:46 Respiratory Rate 18 09/22/17 13:46 Blood Pressure 126/67 09/22/17 13:46 O2 Sat by Pulse Oximetry (%) 97 09/22/17 09:00 Labs: CBC, BMP 09/22/17 06:45 09/22/17 06:45 Discharge Summary Reason For Visit: FEVER/ABD PAIN Current Active Problems Abdominal pain (Acute) Bacteremia (Acute) Bacteremia due to coagulase-negative Staphylococcus (Acute) Biliary sepsis (Acute) Choledocholithiasis (Acute) Choledocholithiasis with obstruction (Acute) Fever (Acute) Hepatic steatosis (Acute) Transaminitis (Acute) Hospital Course: see previous note MRCP shows CBD stone, stricture Pt being transferred to [facility] as he has h/o complicated ERCP and will need intervention in a tertiary center Condition: Guarded - Instructions Referrals: Valentín Welsh MD [Primary Care Provider] - Disposition: TRANSFER ACUTE CARE/OTHER HOSP - Home Medications Comprehensive Discharge Medication List: Ambulatory Orders Acetaminophen [Tylenol .Regular Strength -] 650 mg PO Q8H PRN tablet 09/22/17 Ceftriaxone [Rocephin -] 1 gm IVPB DAILY vial 09/22/17 Ceftriaxone [Rocephin -] 1,000 mg IVPUSH DAILY vial 09/22/17 Cholestyramine/Aspartame [Questran Light Packet -] 4 gm PO DAILY packet Pantoprazole Sodium [Protonix -] 40 mg PO DAILY tablet.ec 09/22/17
[2017-09-22 20:14] VITALS: BP 137/78; PULSE 56; TEMP 97.8
== END 2017-09-22 21:35 | disposition short-term general hospital (02) | DRG 720 ==
LOC: JER 13:23 → JERBED 16:55 → J5S 18:10
PROVIDERS: ADMIT Internal Medicine; ATTEND Internal Medicine
DX: A41.1 Sepsis due to other specified staphylococcus (principal); K80.51 Calculus of bile duct without cholangitis or cholecystitis with obstruction; K44.9 Diaphragmatic hernia without obstruction or gangrene; E78.00 Pure hypercholesterolemia, unspecified; R74.0 Nonspecific elevation of levels of transaminase and lactic acid dehydrogenase [LDH]; R10.9 Unspecified abdominal pain; K76.0 Fatty (change of) liver, not elsewhere classified; E66.9 Obesity, unspecified; Z68.34 Body mass index [BMI] 34.0-34.9, adult
CPT/HCPCS: 36415; 71045-TC-FY; 74181-TC; 76705-TC; 80053; 80074; 81003; 82248; 83605; 83690; 84484; 85025; 85610; 85730; 87040; 87086; 87186; 93005; 93010; 99285-25; J0131; J7030

== ENCOUNTER 2019-07-10 19:44 | Emergency (ER) | payer OTHER ==
[2019-07-10] MEDS ORDERED: ONDANSETRON 4 MG TABLET PO ONE (20:18)
[2019-07-10] MEDS ORDERED: ONDANSETRON *ODT* 4 MG TABLET ONE (20:20)
--- NOTE | 2019-07-10 20:32 | PDOC ---
Rapid Medical Evaluation Chief Complaint: Nausea Medical Evaluation: Allergies Allergy/AdvReac Type Severity Reaction Status Date / Time No Known Allergies Allergy Verified 09/20/17 13:31 07/10/19 20:16 HPI: COVID-19 CDC guideline data points: The patient is a 34 y.o M presents with suspected exposure to confirmed COVID-19 with associated symptoms of fever, dry cough, SOB, decreased appetite, diarrhea x 11 days, complicated by this/these comorbidities: garcia, hld. We seen 1 week for the same symptoms. States he is improved of all his symptoms except for the nausea which has worsened. He is hear requesting to get liver enzymes checked and something for the nausea. ROS: (-) difficulty breathing, shortness of breath, chest pain, lightheadedness, dizziness, (+) nausea, (-) vomiting (+) diarrhea. Other 12 point ROS reviewed and negative. Exam: General: NAD, Well-Appearing, Awake, Alert Oriented x3. Vital signs stable. ENT: No rhinorrhea or nasal congestion. Neck: FROM, no midline tenderness. Lungs: Clear to auscultation bilaterally without wheezes, rhonchi or rales. Normal excursion. Patient is able to speak in full sentences. Heart: HR: [ ] Regular rhythm, S1-S2 present, no murmurs rubs or gallops. Abdomen: Non-distended. MSK/Extremities: No decrease ROM, No obvious deformities. No obvious cyanosis noted. Neuro: Normal Gait, Cranial Nerves II through XII Grossly Intact. Skin: No obvious rashes, bruising. Color Normal Appearing. Assessment/Plan: The patient is a 34 y.o M presents with suspected exposure to confirmed COVID-19 with associated symptoms of fever, dry cough, SOB, decreased appetite, diarrhea x 11 days, complicated by this/these comorbidities: garcia, hld. We seen 1 week for the same symptoms. States he is improved of all his symptoms except for the nausea which has worsened. He is hear requesting to get liver enzymes checked and something for the nausea. Treatment: zofran cmp will d/c home when stable 07/10/19 22:40 Patient with stable LFT's improved form 09/22/17 f/u with with GI Discharge Disposition - Diagnosis Evaluation by medical service required, Nausea - Discharge Dispostion Disposition: HOME Condition at time of disposition: Stable - Prescriptions Prescriptions: Ondansetron HCl [Zofran] 4 mg PO QID #10 tablet - Referrals Referrals: Layton Welsh MD [Primary Care Provider] - - Patient Instructions Printed Discharge Instructions: DI for Nonalcoholic Fatty Liver Disease Additional Instructions: follow up with your GI. - Post Discharge Activity
[2019-07-10 22:17] VITALS: BP 138/85; PULSE 75; TEMP 98.1
[2019-07-10 22:27] LABS: ALBUMIN 3.9 g/dl (3.4-5.0); BLOOD UREA NITROGEN 12.3 mg/dL (7-18); CALCIUM 8.9 mg/dL (8.5-10.1); POTASSIUM 4.3 mmol/L (3.5-5.1); TOT PROT 7.7 g/dl (6.4-8.2)
== END 2019-07-10 22:53 | disposition home or self-care (01) ==
LOC: JER 19:44
DX: R11.0 Nausea (principal)
CPT/HCPCS: 36415; 80053; 99283-25

== ENCOUNTER 2020-02-22 16:50 | Emergency (ER) | payer OTHER ==
[2020-02-22 17:05] VITALS: TEMP 98.2; BMI 34.4
[2020-02-22] MEDS ORDERED: KETOROLAC TROMETHAMINE 30 MG/1 ML VIAL IVPUSH ONE (18:04)
[2020-02-22] MEDS ORDERED: SODIUM CHLORIDE 1,000 ML IV STA ×2 (18:04→19:40)
[2020-02-22] MEDS ORDERED: ONDANSETRON 4 MG/2 ML VIAL IVPUSH ONE (18:04)
[2020-02-22] MEDS ORDERED: KETOROLAC TROMETHAMINE 30 MG/1 ML VIAL ONE (18:08)
[2020-02-22 18:32] LABS: BASO % 0.7 % (0-2.0); EOS % 0.2 % (0-4.5); HEMATOCRIT 46.8 % (35.4-49); HEMOGLOBIN 15.8 GM/dL (11.7-16.9); MCHC 33.8 g/dl (32.0-35.9); MEAN CELL VOLUME 94.5 fl (80-96); MEAN PLT VOLUME 8.6 fl (7.5-11.1); NEUT % 89.1 % (42.8-82.8); PLATELET COUNT 267 K/MM3 (134-434); RBC 4.95 M/mm3 (4.00-5.60); RDW 14.3 % (11.9-15.9); WHITE BLOOD COUNT 21.7 K/mm3 (4.0-10.0)
[2020-02-22 19:26] LABS: POTASSIUM 4.2 mmol/L (3.5-5.1)
[2020-02-22 19:33] LABS: ALBUMIN 4.4 g/dl (3.4-5.0); BLOOD UREA NITROGEN 14.5 mg/dL (7-18)
[2020-02-22 19:37] LABS: CREATININE 1.1 mg/dL (0.55-1.3)
[2020-02-22 19:38] LABS: BILIRUBIN,TOTAL 0.9 mg/dL (0.2-1); TOT PROT 8.1 g/dl (6.4-8.2)
[2020-02-22 20:32] LABS: URINE APPEARANCE CLEAR; URINE BILIRUBIN NEGATIVE (NEGATIVE); URINE COLOR YELLOW; URINE GLUCOSE (UA) NEGATIVE (NEGATIVE); URINE KETONE 1+ (NEGATIVE); URINE LEUK ESTERASE NEGATIVE (NEGATIVE); URINE NITRITE NEGATIVE (NEGATIVE); URINE PROTEIN NEGATIVE (NEGATIVE)
[2020-02-22 22:06] LABS: BASO % 0.5 % (0-2.0); EOS % 0.3 % (0-4.5); HEMATOCRIT 41.5 % (35.4-49); HEMOGLOBIN 13.8 GM/dL (11.7-16.9); LYMPH % 8.8 % (8-40); MCH 31.5 pg (25.7-33.7); MCHC 33.2 g/dl (32.0-35.9); MEAN CELL VOLUME 94.6 fl (80-96); MEAN PLT VOLUME 8.5 fl (7.5-11.1); NEUT % 86.4 % (42.8-82.8); PLATELET COUNT 234 K/MM3 (134-434); RBC 4.39 M/mm3 (4.00-5.60); RDW 14.2 % (11.9-15.9); WHITE BLOOD COUNT 19.6 K/mm3 (4.0-10.0)
[2020-02-22 23:05] VITALS: BP 130/80; PULSE 68
== END 2020-02-22 23:05 | disposition home or self-care (01) ==
LOC: JER 16:50
PROC: 3E0333Z Introduction of Anti-inflammatory into Peripheral Vein, Percutaneous Approach (ICD-10-PCS; principal; 2020-02-22)
PROC: 3E033NZ Introduction of Analgesics, Hypnotics, Sedatives into Peripheral Vein, Percutaneous Approach (ICD-10-PCS; 2020-02-22)
PROC: 3E0337Z Introduction of Electrolytic and Water Balance Substance into Peripheral Vein, Percutaneous Approach (ICD-10-PCS; 2020-02-22)
DX: R10.11 Right upper quadrant pain (principal)
CPT/HCPCS: 36415; 80053; 81003; 83605; 83690; 83735; 85025; 87086; 99285-25

== ENCOUNTER 2020-02-23 19:05 | Inpatient (IN) | payer OTHER ==
[2020-02-23] MEDS ORDERED: morphine CARPU-JECT 4 MG/1 ML DISP.SYRIN IVPUSH ONE ×2 (19:41→23:12)
[2020-02-23] MEDS ORDERED: SODIUM CHLORIDE 1,000 ML IV STA (19:41)
[2020-02-23] MEDS ORDERED: ONDANSETRON 4 MG/2 ML VIAL IVPUSH ONE (19:41)
[2020-02-23] MEDS ORDERED: ACETAMINOPHEN 1000 MG/100 ML VIAL (NON FORMULARY) IVPB ONE (19:46)
[2020-02-23] MEDS ORDERED: morphine SULFATE 4 MG/ML VIAL ONE (19:57)
[2020-02-23] MEDS ORDERED: ACETAMINOPHEN INJECTION 100 ML IVPB ONE (19:57)
[2020-02-23] MEDS ORDERED: CEFTRIAXONE 1,000 MG in DEXTROSE 5%-WATER - 50 ML IVPB ONE (19:59)
[2020-02-23] MEDS ORDERED: PIPERACILLIN/TAZOB 4.5 GM 4.5 GM in DEXTROSE 5%-WATER 100 ML IVPB ONE (20:08)
[2020-02-23] MEDS ORDERED: PIPERACILLIN/TAZOB 4.5 GM 4.5 GM/100 ML BAG IVPB ONE (20:12)
[2020-02-23 20:31] LABS: BASO % 0.4 % (0-2.0); EOS % 0.1 % (0-4.5); HEMATOCRIT 47.1 % (35.4-49); LYMPH % 4.6 % (8-40); MCH 32.4 pg (25.7-33.7); MCHC 33.9 g/dl (32.0-35.9); MEAN CELL VOLUME 95.4 fl (80-96); MEAN PLT VOLUME 9.2 fl (7.5-11.1); MONO % 4.1 % (3.8-10.2); NEUT % 90.8 % (42.8-82.8); PLATELET COUNT 266 K/MM3 (134-434); RBC 4.94 M/mm3 (4.00-5.60); RDW 14.5 % (11.9-15.9); WHITE BLOOD COUNT 25.2 K/mm3 (4.0-10.0)
[2020-02-23 20:54] LABS: ALBUMIN 3.8 g/dl (3.4-5.0); CALCIUM 9.4 mg/dL (8.5-10.1)
[2020-02-23 20:55] LABS: BLOOD UREA NITROGEN 9.8 mg/dL (7-18)
[2020-02-23 20:57] LABS: CREATININE 1.3 mg/dL (0.55-1.3)
[2020-02-23 20:59] LABS: BILIRUBIN,TOTAL 1.6 mg/dL (0.2-1); TOT PROT 7.6 g/dl (6.4-8.2)
[2020-02-24] MEDS ORDERED: morphine SULFATE 4 MG/ML VIAL ONE (00:19)
[2020-02-24] MEDS ORDERED: ACETAMINOPHEN 1000 MG/100 ML VIAL (NON FORMULARY) IVPB PRN (01:38)
[2020-02-24] MEDS ORDERED: LACTATED RINGERS SOLUTION 1,000 ML IV SCH (01:45)
[2020-02-24] MEDS: MORPHINE SULFATE 2 MG/ML VIAL IVPUSH PRN ×2 (02:41→06:41)
[2020-02-24] MEDS ORDERED: DEXTROSE 5%-WATER 100 ML IVPB ONE ×4 (03:03→23:59)
[2020-02-24] MEDS ORDERED: PIPERACILLIN/TAZOBACTAM 4.5 GM VIAL IVPB ONE ×5 (03:03→23:59)
[2020-02-24] MEDS: PIPERACILLIN/TAZOB 4.5 GM 4.5 GM in DEXTROSE 5%-WATER 100 ML IVPB SCH ×3 (03:58→18:02)
[2020-02-24 07:57] LABS: BASO % 0.2 % (0-2.0); EOS % 0.1 % (0-4.5); HEMOGLOBIN 14.8 GM/dL (11.7-16.9); LYMPH % 4.7 % (8-40); MCH 32.3 pg (25.7-33.7); MCHC 33.7 g/dl (32.0-35.9); MEAN CELL VOLUME 95.7 fl (80-96); MEAN PLT VOLUME 9.1 fl (7.5-11.1); MONO % 3.3 % (3.8-10.2); NEUT % 91.7 % (42.8-82.8); PLATELET COUNT 222 K/MM3 (134-434); RBC 4.59 M/mm3 (4.00-5.60); RDW 14.8 % (11.9-15.9); WHITE BLOOD COUNT 27.3 K/mm3 (4.0-10.0)
[2020-02-24 08:06] LABS: POTASSIUM 3.8 mmol/L (3.5-5.1)
[2020-02-24 08:10] LABS: ALBUMIN 3.2 g/dl (3.4-5.0); CALCIUM 8.8 mg/dL (8.5-10.1)
[2020-02-24 08:11] LABS: BLOOD UREA NITROGEN 11.6 mg/dL (7-18); MAGNESIUM 1.7 mg/dL (1.8-2.4)
[2020-02-24 08:13] LABS: BILIRUBIN,DIRECT 0.5 mg/dL (0.0-0.2); CREATININE 1.1 mg/dL (0.55-1.3); PHOSPHOROUS 4.1 mg/dL (2.5-4.9)
[2020-02-24 08:14] LABS: TOT PROT 6.7 g/dl (6.4-8.2)
[2020-02-24 08:15] LABS: BILIRUBIN,TOTAL 1.2 mg/dL (0.2-1)
[2020-02-24] MEDS ORDERED: MAGNESIUM SULF 50% (8.12 MEQ/2 ML-1 GM VIAL) IVPB ONE (08:38)
[2020-02-24] MEDS ORDERED: MAGNESIUM SULFATE IN WATER 2 GM/50 ML IVPB IVPB ONE (09:00)
[2020-02-24 09:08] LABS: ANISOCYTOSIS 0; MACROCYTOSIS 0; PLATELET ESTIMATE NORMAL
[2020-02-24 09:36] LABS: INR 1.31 (0.83-1.09)
[2020-02-24 09:37] LABS: ACTIVATED PTT 29.6 SECONDS (25.2-36.5)
[2020-02-24] MEDS ORDERED: SUCCINYLCHOLINE CHLORIDE 200 MG/10 ML SYRINGE ONE (10:44)
[2020-02-24] MEDS ORDERED: PROPOFOL 20 ML ONE ×3 (10:44→14:18)
[2020-02-24] MEDS ORDERED: fentaNYL CITRATE 250 MCG/5 ML VIAL ONE (10:44)
[2020-02-24] MEDS ORDERED: ROCURONIUM BROMIDE 50 MG/5 ML SYRINGE ONE ×2 (10:44→12:24)
[2020-02-24] MEDS ORDERED: BUPIVACAINE HCL/PF 0.5% (5MG/ML) 10 ML VIAL IJ ONE (11:18)
[2020-02-24] MEDS ORDERED: HYDROmorphone HCl 2 MG/ML VIAL ONE (12:56)
[2020-02-24] MEDS ORDERED: ACETAMINOPHEN INJECTION 100 ML IVPB ONE (13:42)
[2020-02-24] MEDS ORDERED: ACETAMINOPHEN 1000 MG/100 ML VIAL (NON FORMULARY) IVPB ONE (13:43)
[2020-02-24] MEDS ORDERED: NEOSTIGMINE METHYLSULFATE 0.5 MG/ML - 10 ML MDV ONE (14:13)
[2020-02-24] MEDS ORDERED: HYDROmorphone *PCA* 10MG/50ML DISP.SYRIN PCA SCH (14:45)
[2020-02-24] MEDS ORDERED: HYDROmorphone *PCA* 10MG/50ML DISP.SYRIN ONE (14:55)
[2020-02-24] MEDS ORDERED: HYDROmorphone *PCA* 10MG/50ML DISP.SYRIN PCA ONE (15:05)
[2020-02-24] MEDS ORDERED: SODIUM CHLORIDE 1,000 ML IV STA (15:13)
[2020-02-24] MEDS ORDERED: ACETAMINOPHEN 325 MG TABLET (FP) PO PRN (15:43)
[2020-02-24] MEDS ORDERED: PIPERACILLIN/TAZOB 4.5 GM 4.5 GM in DEXTROSE 5%-WATER 100 ML IVPB SCH (18:00)
[2020-02-24] MEDS: LACTATED RINGERS SOLUTION 1,000 ML IV SCH (18:10)
[2020-02-24] MEDS: ACETAMINOPHEN 1000 MG/100 ML VIAL (NON FORMULARY) IVPB PRN (21:40)
[2020-02-24] MEDS ORDERED: ENOXAPARIN NA (PORCINE) 40 MG/0.4 ML DISP.SYRIN SQ SCH ×2 (22:00)
[2020-02-25] MEDS: PIPERACILLIN/TAZOB 4.5 GM 4.5 GM in DEXTROSE 5%-WATER 100 ML IVPB SCH ×3 (01:02→18:22)
[2020-02-25] MEDS: PHENOL 177 ML SPRAY BOTTLE MM PRN ×2 (01:06→22:56)
[2020-02-25] MEDS ORDERED: ONDANSETRON 4 MG/2 ML VIAL IVPUSH PRN (01:32)
[2020-02-25] MEDS: ACETAMINOPHEN 1000 MG/100 ML VIAL (NON FORMULARY) IVPB PRN ×3 (06:34→18:22)
[2020-02-25 07:17] LABS: HEMATOCRIT 38.7 % (35.4-49); MCH 32.2 pg (25.7-33.7); MCHC 33.7 g/dl (32.0-35.9); MEAN CELL VOLUME 95.7 fl (80-96); MEAN PLT VOLUME 9.2 fl (7.5-11.1); PLATELET COUNT 201 K/MM3 (134-434); RBC 4.04 M/mm3 (4.00-5.60); RDW 14.5 % (11.9-15.9)
[2020-02-25 07:27] LABS: POTASSIUM 3.9 mmol/L (3.5-5.1)
[2020-02-25 07:31] LABS: BLOOD UREA NITROGEN 11.9 mg/dL (7-18); CALCIUM 7.9 mg/dL (8.5-10.1); MAGNESIUM 2.2 mg/dL (1.8-2.4)
[2020-02-25 07:35] LABS: CREATININE 0.9 mg/dL (0.55-1.3)
[2020-02-25 07:52] LABS: WHITE BLOOD COUNT 21.3 K/mm3 (4.0-10.0)
[2020-02-25] MEDS ORDERED: PIPERACILLIN/TAZOB 4.5 GM 4.5 GM in DEXTROSE 5%-WATER 100 ML IVPB SCH (10:00)
[2020-02-25] MEDS ORDERED: DEXTROSE 5%-WATER 100 ML IVPB ONE ×2 (11:10→18:17)
[2020-02-25] MEDS ORDERED: PIPERACILLIN/TAZOBACTAM 4.5 GM VIAL IVPB ONE ×2 (11:10→18:17)
[2020-02-25] MEDS: ENOXAPARIN NA (PORCINE) 40 MG/0.4 ML DISP.SYRIN SQ SCH (11:12)
[2020-02-25] MEDS ORDERED: MORPHINE SULFATE 2 MG/ML VIAL IVPUSH PRN (15:00)
[2020-02-25] MEDS ORDERED: PCA PUMP NR ONE (16:33)
[2020-02-25] MEDS: morphine SULFATE 4 MG/ML VIAL IVPUSH PRN ×2 (17:16→22:57)
[2020-02-25] MEDS: LACTATED RINGERS SOLUTION 1,000 ML IV SCH ×2 (17:16→22:56)
[2020-02-25] MEDS: KETOROLAC TROMETHAMINE 30 MG/1 ML VIAL IVPUSH PRN (17:33)
[2020-02-26] MEDS ORDERED: PIPERACILLIN/TAZOBACTAM 4.5 GM VIAL IVPB ONE ×2 (01:13→09:00)
[2020-02-26] MEDS ORDERED: DEXTROSE 5%-WATER 100 ML IVPB ONE ×2 (01:13→09:00)
[2020-02-26] MEDS: KETOROLAC TROMETHAMINE 30 MG/1 ML VIAL IVPUSH PRN (01:58)
[2020-02-26] MEDS: PIPERACILLIN/TAZOB 4.5 GM 4.5 GM in DEXTROSE 5%-WATER 100 ML IVPB SCH ×2 (01:58→09:05)
[2020-02-26] MEDS: morphine SULFATE 4 MG/ML VIAL IVPUSH PRN (05:26)
[2020-02-26] MEDS: LACTATED RINGERS SOLUTION 1,000 ML IV SCH ×3 (05:33→17:15)
[2020-02-26] MEDS: ACETAMINOPHEN 1000 MG/100 ML VIAL (NON FORMULARY) IVPB PRN (06:39)
[2020-02-26 07:16] LABS: BASO % 0.3 % (0-2.0); EOS % 0.7 % (0-4.5); HEMATOCRIT 39.7 % (35.4-49); HEMOGLOBIN 13.3 GM/dL (11.7-16.9); LYMPH % 3.6 % (8-40); MCH 32.2 pg (25.7-33.7); MCHC 33.5 g/dl (32.0-35.9); MEAN CELL VOLUME 96.1 fl (80-96); MEAN PLT VOLUME 9.4 fl (7.5-11.1); MONO % 3.2 % (3.8-10.2); NEUT % 92.2 % (42.8-82.8); PLATELET COUNT 256 K/MM3 (134-434); RBC 4.13 M/mm3 (4.00-5.60); RDW 14.5 % (11.9-15.9)
[2020-02-26 08:08] LABS: POTASSIUM 3.8 mmol/L (3.5-5.1)
[2020-02-26 08:53] LABS: ALBUMIN 2.5 g/dl (3.4-5.0); CALCIUM 8.2 mg/dL (8.5-10.1); MAGNESIUM 2.1 mg/dL (1.8-2.4)
[2020-02-26 08:56] LABS: CREATININE 0.9 mg/dL (0.55-1.3); PHOSPHOROUS 2.6 mg/dL (2.5-4.9)
[2020-02-26 08:57] LABS: TOT PROT 5.9 g/dl (6.4-8.2)
[2020-02-26] MEDS: ENOXAPARIN NA (PORCINE) 40 MG/0.4 ML DISP.SYRIN SQ SCH (09:05)
[2020-02-26] MEDS: PANTOPRAZOLE SODIUM 40 MG VIAL IVPUSH SCH (10:00)
[2020-02-26] MEDS: ERTAPENEM SODIUM 1 GM in SODIUM CHLORIDE 50 ML IVPB SCH (10:10)
[2020-02-26 10:18] LABS: ANISOCYTOSIS 1+; MACROCYTOSIS 1+; PLATELET ESTIMATE NORMAL
[2020-02-26] MEDS: ONDANSETRON 4 MG/2 ML VIAL IVPUSH PRN ×2 (10:40→18:13)
[2020-02-26] MEDS ORDERED: AMPICILLIN SODIUM 2 GM VIAL ONE ×2 (13:38→19:53)
[2020-02-26] MEDS ORDERED: SODIUM CHLORIDE 100 ML IVPB ONE ×2 (13:39→19:53)
[2020-02-26] MEDS: AMPICILLIN - 2 GM in SODIUM CHLORIDE 100 ML IVPB SCH ×2 (14:00→20:59)
[2020-02-26 17:46] VITALS: BMI 34.8
[2020-02-27] MEDS ORDERED: AMPICILLIN SODIUM 2 GM VIAL ONE ×4 (02:12→21:02)
[2020-02-27] MEDS ORDERED: SODIUM CHLORIDE 100 ML IVPB ONE ×4 (02:13→21:02)
[2020-02-27] MEDS: AMPICILLIN - 2 GM in SODIUM CHLORIDE 100 ML IVPB SCH ×4 (02:22→21:17)
[2020-02-27] MEDS: LACTATED RINGERS SOLUTION 1,000 ML IV SCH ×2 (04:23→15:03)
[2020-02-27 07:00] LABS: BASO % 0.6 % (0-2.0); EOS % 2.9 % (0-4.5); HEMATOCRIT 39.6 % (35.4-49); HEMOGLOBIN 13.3 GM/dL (11.7-16.9); LYMPH % 10.1 % (8-40); MCH 32.2 pg (25.7-33.7); MCHC 33.6 g/dl (32.0-35.9); MEAN CELL VOLUME 95.8 fl (80-96); MONO % 4.8 % (3.8-10.2); NEUT % 81.6 % (42.8-82.8); PLATELET COUNT 276 K/MM3 (134-434); RBC 4.13 M/mm3 (4.00-5.60); RDW 14.2 % (11.9-15.9); WHITE BLOOD COUNT 13.4 K/mm3 (4.0-10.0)
[2020-02-27 07:11] LABS: POTASSIUM 3.6 mmol/L (3.5-5.1)
[2020-02-27 07:12] LABS: CALCIUM 8.1 mg/dL (8.5-10.1)
[2020-02-27 07:16] LABS: CREATININE 0.9 mg/dL (0.55-1.3)
[2020-02-27] MEDS ORDERED: ERTAPENEM SODIUM 1 GM VIAL ONE (09:24)
[2020-02-27] MEDS ORDERED: SODIUM CHLORIDE 50 ML IVPB ONE (09:24)
[2020-02-27] MEDS: ERTAPENEM SODIUM 1 GM in SODIUM CHLORIDE 50 ML IVPB SCH (09:31)
[2020-02-27] MEDS: ENOXAPARIN NA (PORCINE) 40 MG/0.4 ML DISP.SYRIN SQ SCH (09:31)
[2020-02-27] MEDS: PANTOPRAZOLE SODIUM 40 MG VIAL IVPUSH SCH (09:32)
[2020-02-27] MEDS: oxyCODONE HCL 5 MG TABLET PO PRN (21:16)
[2020-02-28] MEDS ORDERED: SODIUM CHLORIDE 100 ML IVPB ONE ×4 (02:10→19:59)
[2020-02-28] MEDS ORDERED: AMPICILLIN SODIUM 2 GM VIAL ONE ×4 (02:10→19:59)
[2020-02-28] MEDS: AMPICILLIN - 2 GM in SODIUM CHLORIDE 100 ML IVPB SCH ×4 (02:18→21:49)
[2020-02-28 07:56] LABS: BASO % 0.7 % (0-2.0); HEMATOCRIT 37.1 % (35.4-49); HEMOGLOBIN 12.5 GM/dL (11.7-16.9); MCHC 33.7 g/dl (32.0-35.9); MEAN CELL VOLUME 95.1 fl (80-96); MEAN PLT VOLUME 8.9 fl (7.5-11.1); MONO % 6.1 % (3.8-10.2); NEUT % 73.2 % (42.8-82.8); PLATELET COUNT 261 K/MM3 (134-434); RDW 14.2 % (11.9-15.9); WHITE BLOOD COUNT 10.5 K/mm3 (4.0-10.0)
[2020-02-28 08:03] LABS: POTASSIUM 3.4 mmol/L (3.5-5.1)
[2020-02-28 08:09] LABS: ALBUMIN 2.3 g/dl (3.4-5.0); CALCIUM 8.3 mg/dL (8.5-10.1)
[2020-02-28 08:10] LABS: BLOOD UREA NITROGEN 12.2 mg/dL (7-18); MAGNESIUM 2.2 mg/dL (1.8-2.4)
[2020-02-28 08:13] LABS: CREATININE 0.8 mg/dL (0.55-1.3); PHOSPHOROUS 3.7 mg/dL (2.5-4.9)
[2020-02-28 08:14] LABS: BILIRUBIN,TOTAL 0.5 mg/dL (0.2-1); TOT PROT 5.6 g/dl (6.4-8.2)
[2020-02-28] MEDS ORDERED: POTASSIUM CHLORIDE TABS 20 MEQ TABLET.ER (FP) PO ONE (08:51)
[2020-02-28] MEDS ORDERED: ERTAPENEM SODIUM 1 GM VIAL ONE (09:46)
[2020-02-28] MEDS ORDERED: SODIUM CHLORIDE 50 ML IVPB ONE (09:46)
[2020-02-28] MEDS: LACTATED RINGERS SOLUTION 1,000 ML IV SCH (10:36)
[2020-02-28] MEDS: ENOXAPARIN NA (PORCINE) 40 MG/0.4 ML DISP.SYRIN SQ SCH (10:37)
[2020-02-28] MEDS: PANTOPRAZOLE SODIUM 40 MG VIAL IVPUSH SCH (10:38)
[2020-02-28] MEDS: ERTAPENEM SODIUM 1 GM in SODIUM CHLORIDE 50 ML IVPB SCH (12:03)
[2020-02-28] MEDS: oxyCODONE HCL 5 MG TABLET PO PRN (15:15)
[2020-02-29] MEDS ORDERED: AMPICILLIN SODIUM 2 GM VIAL ONE ×4 (00:22→20:32)
[2020-02-29] MEDS ORDERED: SODIUM CHLORIDE 100 ML IVPB ONE ×4 (00:22→20:32)
[2020-02-29] MEDS: AMPICILLIN - 2 GM in SODIUM CHLORIDE 100 ML IVPB SCH ×4 (02:03→21:36)
[2020-02-29 07:34] LABS: BASO % 0.7 % (0-2.0); EOS % 3.9 % (0-4.5); HEMATOCRIT 40.7 % (35.4-49); HEMOGLOBIN 13.4 GM/dL (11.7-16.9); LYMPH % 15.6 % (8-40); MCH 31.3 pg (25.7-33.7); MEAN CELL VOLUME 94.7 fl (80-96); MEAN PLT VOLUME 8.7 fl (7.5-11.1); MONO % 7.2 % (3.8-10.2); NEUT % 72.6 % (42.8-82.8); PLATELET COUNT 309 K/MM3 (134-434); RDW 14.1 % (11.9-15.9); WHITE BLOOD COUNT 12.5 K/mm3 (4.0-10.0)
[2020-02-29 07:48] LABS: POTASSIUM 3.7 mmol/L (3.5-5.1)
[2020-02-29 08:05] LABS: BILIRUBIN,TOTAL 0.5 mg/dL (0.2-1); TOT PROT 6.4 g/dl (6.4-8.2)
[2020-02-29 08:07] LABS: ALBUMIN 2.6 g/dl (3.4-5.0); BLOOD UREA NITROGEN 10.6 mg/dL (7-18); CALCIUM 8.6 mg/dL (8.5-10.1); MAGNESIUM 2.1 mg/dL (1.8-2.4)
[2020-02-29 08:10] LABS: CREATININE 0.8 mg/dL (0.55-1.3)
[2020-02-29] MEDS ORDERED: ERTAPENEM SODIUM 1 GM VIAL ONE (08:14)
[2020-02-29] MEDS ORDERED: SODIUM CHLORIDE 50 ML IVPB ONE (08:14)
[2020-02-29] MEDS: PANTOPRAZOLE SODIUM 40 MG VIAL IVPUSH SCH (09:04)
[2020-02-29] MEDS: ENOXAPARIN NA (PORCINE) 40 MG/0.4 ML DISP.SYRIN SQ SCH (09:04)
[2020-02-29 09:10] LABS: ANISOCYTOSIS 1+; MACROCYTOSIS 0; PLATELET ESTIMATE NORMAL
[2020-02-29] MEDS: ERTAPENEM SODIUM 1 GM in SODIUM CHLORIDE 50 ML IVPB SCH (10:55)
[2020-03-01] MEDS ORDERED: SODIUM CHLORIDE 100 ML IVPB ONE ×2 (01:52→20:32)
[2020-03-01] MEDS ORDERED: AMPICILLIN SODIUM 2 GM VIAL ONE ×2 (01:52→20:31)
[2020-03-01] MEDS: AMPICILLIN - 2 GM in SODIUM CHLORIDE 100 ML IVPB SCH ×5 (03:16→20:42)
[2020-03-01] MEDS: oxyCODONE HCL 5 MG TABLET PO PRN ×2 (03:23→21:24)
[2020-03-01 06:33] LABS: BASO % 0.6 % (0-2.0); EOS % 3.8 % (0-4.5); HEMATOCRIT 36.3 % (35.4-49); HEMOGLOBIN 12.3 GM/dL (11.7-16.9); LYMPH % 16.9 % (8-40); MCH 31.6 pg (25.7-33.7); MCHC 33.8 g/dl (32.0-35.9); MEAN CELL VOLUME 93.6 fl (80-96); MEAN PLT VOLUME 8.5 fl (7.5-11.1); MONO % 6.6 % (3.8-10.2); NEUT % 72.1 % (42.8-82.8); PLATELET COUNT 320 K/MM3 (134-434); RBC 3.88 M/mm3 (4.00-5.60); RDW 13.9 % (11.9-15.9); WHITE BLOOD COUNT 12.4 K/mm3 (4.0-10.0)
[2020-03-01 06:42] LABS: POTASSIUM 3.5 mmol/L (3.5-5.1)
[2020-03-01 06:51] LABS: ALBUMIN 2.4 g/dl (3.4-5.0)
[2020-03-01 06:53] LABS: CALCIUM 8.1 mg/dL (8.5-10.1)
[2020-03-01 06:55] LABS: CREATININE 0.8 mg/dL (0.55-1.3); PHOSPHOROUS 3.7 mg/dL (2.5-4.9)
[2020-03-01 06:57] LABS: BILIRUBIN,TOTAL 0.5 mg/dL (0.2-1)
[2020-03-01] MEDS ORDERED: PT OWN MED DRAWER 7, Y5N ONE ×3 (08:26→14:37)
[2020-03-01 08:57] LABS: PLATELET ESTIMATE NORMAL
[2020-03-01] MEDS: ERTAPENEM SODIUM 1 GM in SODIUM CHLORIDE 50 ML IVPB SCH (09:04)
[2020-03-01] MEDS: ENOXAPARIN NA (PORCINE) 40 MG/0.4 ML DISP.SYRIN SQ SCH (09:04)
[2020-03-01] MEDS: PANTOPRAZOLE SODIUM 40 MG VIAL IVPUSH SCH (09:18)
[2020-03-01] MEDS ORDERED: POTASSIUM CHLORIDE TABS 20 MEQ TABLET.ER (FP) PO ONE (11:00)
[2020-03-02] MEDS ORDERED: AMPICILLIN SODIUM 2 GM VIAL ONE ×4 (02:50→20:11)
[2020-03-02] MEDS ORDERED: SODIUM CHLORIDE 100 ML IVPB ONE ×4 (02:51→20:11)
[2020-03-02] MEDS: AMPICILLIN - 2 GM in SODIUM CHLORIDE 100 ML IVPB SCH ×4 (02:53→20:55)
[2020-03-02 06:41] LABS: BASO % 0.9 % (0-2.0); EOS % 4.1 % (0-4.5); HEMATOCRIT 38.6 % (35.4-49); HEMOGLOBIN 12.8 GM/dL (11.7-16.9); LYMPH % 15.3 % (8-40); MCH 31.4 pg (25.7-33.7); MCHC 33.2 g/dl (32.0-35.9); MEAN CELL VOLUME 94.5 fl (80-96); MEAN PLT VOLUME 8.6 fl (7.5-11.1); MONO % 4.4 % (3.8-10.2); NEUT % 75.3 % (42.8-82.8); PLATELET COUNT 364 K/MM3 (134-434); RBC 4.09 M/mm3 (4.00-5.60); RDW 14.2 % (11.9-15.9); WHITE BLOOD COUNT 15.6 K/mm3 (4.0-10.0)
[2020-03-02 06:57] LABS: POTASSIUM 3.8 mmol/L (3.5-5.1)
[2020-03-02 07:00] LABS: ALBUMIN 2.7 g/dl (3.4-5.0); BLOOD UREA NITROGEN 13.1 mg/dL (7-18); CALCIUM 8.4 mg/dL (8.5-10.1); MAGNESIUM 2.2 mg/dL (1.8-2.4)
[2020-03-02 07:04] LABS: CREATININE 0.9 mg/dL (0.55-1.3); PHOSPHOROUS 3.4 mg/dL (2.5-4.9)
[2020-03-02 07:06] LABS: BILIRUBIN,TOTAL 0.4 mg/dL (0.2-1); TOT PROT 6.5 g/dl (6.4-8.2)
[2020-03-02] MEDS ORDERED: SODIUM CHLORIDE 50 ML IVPB ONE (09:24)
[2020-03-02] MEDS ORDERED: ERTAPENEM SODIUM 1 GM VIAL ONE (09:24)
[2020-03-02] MEDS: ENOXAPARIN NA (PORCINE) 40 MG/0.4 ML DISP.SYRIN SQ SCH (09:33)
[2020-03-02] MEDS: PANTOPRAZOLE SODIUM 40 MG VIAL IVPUSH SCH (09:34)
[2020-03-02] MEDS: ERTAPENEM SODIUM 1 GM in SODIUM CHLORIDE 50 ML IVPB SCH (10:13)
[2020-03-03] MEDS ORDERED: SODIUM CHLORIDE 100 ML IVPB ONE ×2 (00:14→10:35)
[2020-03-03] MEDS ORDERED: AMPICILLIN SODIUM 2 GM VIAL ONE ×2 (00:14→10:34)
[2020-03-03] MEDS: oxyCODONE HCL 5 MG TABLET PO PRN (00:35)
[2020-03-03] MEDS: AMPICILLIN - 2 GM in SODIUM CHLORIDE 100 ML IVPB SCH ×2 (03:03→10:36)
[2020-03-03 06:15] LABS: BASO % 0.5 % (0-2.0); EOS % 4.1 % (0-4.5); HEMATOCRIT 38.9 % (35.4-49); LYMPH % 19.1 % (8-40); MCH 31.5 pg (25.7-33.7); MCHC 33.4 g/dl (32.0-35.9); MEAN CELL VOLUME 94.4 fl (80-96); MEAN PLT VOLUME 8.5 fl (7.5-11.1); NEUT % 72.3 % (42.8-82.8); PLATELET COUNT 386 K/MM3 (134-434); RBC 4.13 M/mm3 (4.00-5.60); RDW 14.2 % (11.9-15.9); WHITE BLOOD COUNT 13.5 K/mm3 (4.0-10.0)
[2020-03-03 07:18] LABS: POTASSIUM 4.3 mmol/L (3.5-5.1)
[2020-03-03 07:22] LABS: ALBUMIN 2.8 g/dl (3.4-5.0); BLOOD UREA NITROGEN 17.6 mg/dL (7-18); CALCIUM 8.7 mg/dL (8.5-10.1); MAGNESIUM 2.3 mg/dL (1.8-2.4)
[2020-03-03 07:25] LABS: PHOSPHOROUS 3.8 mg/dL (2.5-4.9)
[2020-03-03 07:26] LABS: BILIRUBIN,TOTAL 0.4 mg/dL (0.2-1); TOT PROT 6.9 g/dl (6.4-8.2)
[2020-03-03] MEDS: ENOXAPARIN NA (PORCINE) 40 MG/0.4 ML DISP.SYRIN SQ SCH (10:32)
[2020-03-03] MEDS: PANTOPRAZOLE SODIUM 40 MG VIAL IVPUSH SCH (10:35)
[2020-03-03] MEDS: ERTAPENEM SODIUM 1 GM in SODIUM CHLORIDE 50 ML IVPB SCH (12:37)
[2020-03-03 15:11] VITALS: BP 125/86; PULSE 82; TEMP 98
== END 2020-03-03 15:16 | disposition home or self-care (01) | DRG 853 ==
LOC: JER 19:05 → JERBED 23:01 → J7W 02-24 02:34
PROVIDERS: ADMIT Hospitalist; ATTEND Internal Medicine
PROC: 0WJG4ZZ Inspection of Peritoneal Cavity, Percutaneous Endoscopic Approach (ICD-10-PCS; 2020-02-24)
PROC: 0DTJ0ZZ Resection of Appendix, Open Approach (ICD-10-PCS; principal; 2020-02-24 11:30)
DX: A41.9 Sepsis, unspecified organism (principal); K35.33 Acute appendicitis with perforation, localized peritonitis, and gangrene, with abscess; J98.11 Atelectasis; D72.829 Elevated white blood cell count, unspecified; K75.81 Nonalcoholic steatohepatitis (NASH); Z53.31 Laparoscopic surgical procedure converted to open procedure; Z91.14 Patient's other noncompliance with medication regimen; R07.9 Chest pain, unspecified; R09.02 Hypoxemia
CPT/HCPCS: 36415; 71046-TC-FY; 71275-TC; 74018-TC-FY; 74177-TC; 80048; 80053; 82248; 83690; 83735; 84100; 85025; 85027; 85610; 85730; 86140; 86850; 86900; 86901; 87040; 87070; 87075; 87186; 87205; 88304-TC; 94760; 97116-GP; 97161-GP; 99285-25; C9803; J0131; Q9967; U0003

== ENCOUNTER 2020-03-04 09:16 | Day surgery (SDC) | payer OTHER ==
[2020-03-04] MEDS ORDERED: ERTAPENEM SODIUM 1 GM VIAL ONE ×2 (10:34→10:38)
[2020-03-04] MEDS ORDERED: SODIUM CHLORIDE 50 ML IVPB ONE ×2 (10:35→10:38)
[2020-03-04] MEDS ORDERED: ERTAPENEM SODIUM 1 GM in SODIUM CHLORIDE 50 ML IVPB ONE ×2 (10:45→11:00)
[2020-03-04 10:50] VITALS: BP 140/68; PULSE 79; TEMP 98.3
== END 2020-03-04 11:40 | disposition home or self-care (01) ==
LOC: JINFUSION 09:16 → J7W 09:17 → JINFUSION 11:40
PROVIDERS: ATTEND Internal Medicine
DX: A04.4 Other intestinal Escherichia coli infections (principal); Z16.12 Extended spectrum beta lactamase (ESBL) resistance
CPT/HCPCS: 96365

== ENCOUNTER 2020-03-05 04:12 | Day surgery (SDC) | payer OTHER ==
[2020-03-05] MEDS ORDERED: ERTAPENEM SODIUM 1 GM VIAL ONE (11:59)
[2020-03-05 12:15] VITALS: TEMP 98.7
[2020-03-05] MEDS ORDERED: ERTAPENEM SODIUM 1 GM in SODIUM CHLORIDE 50 ML IVPB ONE (12:15)
[2020-03-05 12:48] VITALS: BP 137/81; PULSE 81
[2020-03-05 13:18] LABS: HEMATOCRIT 44.6 % (35.4-49); HEMOGLOBIN 15.2 GM/dL (11.7-16.9); MCH 32.6 pg (25.7-33.7); MEAN CELL VOLUME 95.8 fl (80-96); MEAN PLT VOLUME 9.1 fl (7.5-11.1); PLATELET COUNT 517 K/MM3 (134-434); RBC 4.65 M/mm3 (4.00-5.60); RDW 14.6 % (11.9-15.9); WHITE BLOOD COUNT 15.5 K/mm3 (4.0-10.0)
[2020-03-05 13:44] LABS: POTASSIUM 4.8 mmol/L (3.5-5.1)
[2020-03-05 13:45] LABS: BLOOD UREA NITROGEN 16.4 mg/dL (7-18); CALCIUM 9.3 mg/dL (8.5-10.1)
[2020-03-05 13:49] LABS: CREATININE 1.1 mg/dL (0.55-1.3)
== END 2020-03-05 12:47 | disposition home or self-care (01) ==
LOC: JINFUSION 04:12
PROVIDERS: ATTEND Internal Medicine
DX: A04.4 Other intestinal Escherichia coli infections (principal); Z16.12 Extended spectrum beta lactamase (ESBL) resistance
CPT/HCPCS: 36415; 80048; 85027; 96365

== ENCOUNTER 2020-03-06 05:14 | Day surgery (SDC) | payer OTHER ==
[2020-03-06] MEDS ORDERED: ERTAPENEM SODIUM 1 GM VIAL ONE (08:49)
[2020-03-06] MEDS ORDERED: ERTAPENEM SODIUM 1 GM in SODIUM CHLORIDE 50 ML IVPB ONE (09:00)
[2020-03-06 09:05] VITALS: TEMP 98.7
[2020-03-06 09:35] VITALS: BP 116/73; PULSE 78
== END 2020-03-06 09:31 | disposition home or self-care (01) ==
LOC: JINFUSION 05:14
PROVIDERS: ATTEND Internal Medicine
DX: A04.4 Other intestinal Escherichia coli infections (principal); Z16.12 Extended spectrum beta lactamase (ESBL) resistance
CPT/HCPCS: 96367

== ENCOUNTER 2020-03-07 08:06 | Day surgery (SDC) | payer OTHER ==
[2020-03-07] MEDS ORDERED: ERTAPENEM SODIUM 1 GM VIAL ONE (08:56)
[2020-03-07 08:58] LABS: HEMATOCRIT 43.2 % (35.4-49); HEMOGLOBIN 14.5 GM/dL (11.7-16.9); MCHC 33.7 g/dl (32.0-35.9); MEAN CELL VOLUME 95.1 fl (80-96); MEAN PLT VOLUME 8.7 fl (7.5-11.1); PLATELET COUNT 522 K/MM3 (134-434); RBC 4.54 M/mm3 (4.00-5.60); RDW 14.4 % (11.9-15.9); WHITE BLOOD COUNT 13.3 K/mm3 (4.0-10.0)
[2020-03-07] MEDS ORDERED: ERTAPENEM SODIUM 1 GM in SODIUM CHLORIDE 50 ML IVPB ONE (09:00)
[2020-03-07 09:25] LABS: POTASSIUM 4.4 mmol/L (3.5-5.1)
[2020-03-07 09:26] LABS: BLOOD UREA NITROGEN 20.3 mg/dL (7-18); CALCIUM 9.5 mg/dL (8.5-10.1)
[2020-03-07 09:30] LABS: CREATININE 1.1 mg/dL (0.55-1.3)
[2020-03-07 09:55] VITALS: TEMP 97.8
[2020-03-07 10:37] VITALS: BP 134/80; PULSE 80
== END 2020-03-07 10:05 | disposition home or self-care (01) ==
LOC: JINFUSION 08:06
PROVIDERS: ATTEND Internal Medicine
DX: A04.4 Other intestinal Escherichia coli infections (principal); Z16.12 Extended spectrum beta lactamase (ESBL) resistance
CPT/HCPCS: 36415; 80048; 85027; 86140; 96365

== ENCOUNTER 2020-03-08 08:45 | Day surgery (SDC) | payer OTHER ==
[2020-03-08] MEDS ORDERED: ERTAPENEM SODIUM 1 GM in SODIUM CHLORIDE 50 ML IVPB ONE (09:15)
[2020-03-08] MEDS ORDERED: ERTAPENEM SODIUM 1 GM VIAL ONE (09:17)
[2020-03-08] MEDS ORDERED: SODIUM CHLORIDE 50 ML IVPB ONE (09:17)
[2020-03-08 13:07] VITALS: BP 131/84; PULSE 75; TEMP 98.3
== END 2020-03-08 10:50 | disposition home or self-care (01) ==
LOC: JINFUSION 08:45 → J7W 08:55 → JINFUSION 10:50
PROVIDERS: ATTEND Internal Medicine
DX: A04.4 Other intestinal Escherichia coli infections (principal); Z16.12 Extended spectrum beta lactamase (ESBL) resistance
CPT/HCPCS: 96365

== ENCOUNTER 2020-03-09 05:33 | Day surgery (SDC) | payer OTHER ==
[2020-03-09] MEDS ORDERED: ERTAPENEM SODIUM 1 GM in DEXTROSE 5%-WATER - 50 ML IVPB ONE (10:30)
[2020-03-09] MEDS ORDERED: ERTAPENEM SODIUM 1 GM VIAL ONE (11:48)
[2020-03-09] MEDS ORDERED: DEXTROSE 5%-WATER - 50 ML IVPB ONE (11:48)
[2020-03-09 14:34] VITALS: BP 133/68; PULSE 75; TEMP 98
== END 2020-03-09 14:34 | disposition home or self-care (01) ==
LOC: JINFUSION 05:33 → J7W 10:07 → JINFUSION 14:34
PROVIDERS: ATTEND Internal Medicine
DX: A04.4 Other intestinal Escherichia coli infections (principal); Z16.12 Extended spectrum beta lactamase (ESBL) resistance
CPT/HCPCS: 96365

== ENCOUNTER 2020-03-10 11:00 | Day surgery (SDC) | payer OTHER ==
[2020-03-10] MEDS ORDERED: ERTAPENEM SODIUM 1 GM in SODIUM CHLORIDE 50 ML IVPB ONE (11:15)
[2020-03-10] MEDS ORDERED: SODIUM CHLORIDE 50 ML IVPB ONE (12:05)
[2020-03-10] MEDS ORDERED: ERTAPENEM SODIUM 1 GM VIAL ONE (12:05)
[2020-03-10 17:26] VITALS: BP 125/78; PULSE 86; TEMP 98
== END 2020-03-10 12:35 | disposition home or self-care (01) ==
LOC: JINFUSION 11:00 → J7W 11:00 → JINFUSION 12:35
PROVIDERS: ATTEND Internal Medicine
DX: A04.4 Other intestinal Escherichia coli infections (principal); Z16.12 Extended spectrum beta lactamase (ESBL) resistance
CPT/HCPCS: 96365; 96367

== ENCOUNTER 2021-08-23 23:55 | Emergency (ER) | payer OTHER ==
[2021-08-23 23:59] VITALS: BP 145/96; PULSE 86; TEMP 99.9; BMI 33.0
[2021-08-24] MEDS ORDERED: ACETAMINOPHEN 325 MG TABLET (FP) PO ONE (00:52)
[2021-08-24] MEDS ORDERED: ACETAMINOPHEN 325 MG TABLET (FP) ONE (01:13)
== END 2021-08-24 02:16 | disposition home or self-care (01) ==
LOC: JER 23:55
DX: B34.9 Viral infection, unspecified (principal)
CPT/HCPCS: 0241U-QW; 99283-25

== ENCOUNTER 2022-02-26 14:28 | Inpatient (IN) | payer OTHER ==
[2022-02-26] MEDS ORDERED: VANCOMYCIN 1 GM in D5W (PRE-DOCKED) 1,000 MG/250 ML IVPB ONE (17:39)
[2022-02-26] MEDS ORDERED: VANCOMYCIN/WATER FOR INJ (PEG) 1,000 MG/200 ML BAG IVPB ONE (17:52)
[2022-02-26 18:46] LABS: BASO % 0.6 % (0-2.0); EOS % 2.7 % (0-4.5); HEMATOCRIT 41.2 % (35.4-49); LYMPH % 30.3 % (8-40); MCH 30.3 pg (25.7-33.7); MEAN CELL VOLUME 89.1 fl (80-96); MEAN PLT VOLUME 8.3 fl (7.5-11.1); MONO % 9.1 % (3.8-10.2); NEUT % 57.3 % (42.8-82.8); PLATELET COUNT 230 10^3/uL (134-434); RBC 4.62 M/mm3 (4.00-5.60); RDW 15.4 % (11.9-15.9); WHITE BLOOD COUNT 5.5 K/mm3 (4.0-10.0)
[2022-02-26 18:53] LABS: INR 1.05 (0.83-1.09); PROTHROMBIN TIME (PATIENT) 12.1 SEC (9.7-13.0)
[2022-02-26 19:11] LABS: CALCIUM 9.1 mg/dL (8.5-10.1)
[2022-02-26 19:12] LABS: ALBUMIN 3.7 g/dl (3.4-5.0); BLOOD UREA NITROGEN 19.5 mg/dL (7-18)
[2022-02-26 19:15] LABS: CREATININE 0.9 mg/dL (0.55-1.3)
[2022-02-26 19:16] LABS: BILIRUBIN,TOTAL 0.4 mg/dL (0.2-1); TOT PROT 6.9 g/dl (6.4-8.2)
[2022-02-26] MEDS ORDERED: VANCOMYCIN 500 MG in DEXTROSE 5%-WATER - 100 ML IVPB ONE (22:16)
[2022-02-26 22:22] LABS: URINE APPEARANCE CLEAR; URINE BILIRUBIN NEGATIVE (NEGATIVE); URINE COLOR YELLOW; URINE GLUCOSE (UA) NEGATIVE (NEGATIVE); URINE KETONE NEGATIVE (NEGATIVE); URINE LEUK ESTERASE NEGATIVE (NEGATIVE); URINE NITRITE NEGATIVE (NEGATIVE); URINE PROTEIN NEGATIVE (NEGATIVE); URINE UROBILINOGEN 0.2 mg/dL (0.2-1.0)
[2022-02-26] MEDS ORDERED: DOCUSATE SODIUM 100 MG CAPSULE (FP) PO PRN (22:25)
[2022-02-26] MEDS ORDERED: ACETAMINOPHEN 1000 MG/100 ML BAG IVPB PRN (22:36)
[2022-02-26] MEDS ORDERED: PIPERACILLIN/TAZOB 4.5 GM 4.5 GM in DEXTROSE 5%-WATER 100 ML IVPB ONE (22:39)
[2022-02-26] MEDS ORDERED: VANCOMYCIN 500 MG VIAL (RESTRICTED TO ID ONLY) ONE ×2 (22:56→23:02)
[2022-02-26] MEDS ORDERED: PIPERACILLIN/TAZOB 4.5 GM 4.5 GM/100 ML BAG IVPB ONE (22:57)
[2022-02-27 01:24] VITALS: BMI 31.8
[2022-02-27 09:51] LABS: BASO % 0.6 % (0-2.0); EOS % 2.8 % (0-4.5); HEMATOCRIT 42.5 % (35.4-49); HEMOGLOBIN 14.3 GM/dL (11.7-16.9); LYMPH % 27.7 % (8-40); MCHC 33.7 g/dl (32.0-35.9); MEAN CELL VOLUME 88.9 fl (80-96); MEAN PLT VOLUME 8.4 fl (7.5-11.1); MONO % 6.6 % (3.8-10.2); NEUT % 62.3 % (42.8-82.8); PLATELET COUNT 244 10^3/uL (134-434); RBC 4.78 M/mm3 (4.00-5.60); RDW 15.2 % (11.9-15.9); WHITE BLOOD COUNT 5.6 K/mm3 (4.0-10.0)
[2022-02-27 10:10] LABS: CALCIUM 8.8 mg/dL (8.5-10.1)
[2022-02-27 10:11] LABS: BLOOD UREA NITROGEN 19.8 mg/dL (7-18)
[2022-02-27 10:14] LABS: CREATININE 0.8 mg/dL (0.55-1.3)
[2022-02-27 10:31] VITALS: RESP 18
[2022-02-27] MEDS: PIPERACILLIN/TAZOB 4.5 GM 4.5 GM in DEXTROSE 5%-WATER 100 ML IVPB SCH (17:31)
[2022-02-27] MEDS: VANCOMYCIN/WATER FOR INJ (PEG) 1,000 MG/200 ML BAG IVPB SCH (17:31)
[2022-02-27] MEDS ORDERED: ACETAMINOPHEN 325 MG TABLET (FP) PO PRN (23:00)
[2022-02-28] MEDS: PIPERACILLIN/TAZOB 4.5 GM 4.5 GM in DEXTROSE 5%-WATER 100 ML IVPB SCH ×3 (02:19→17:29)
[2022-02-28] MEDS: VANCOMYCIN/WATER FOR INJ (PEG) 1,000 MG/200 ML BAG IVPB SCH ×2 (06:33→18:39)
[2022-03-01] MEDS: PIPERACILLIN/TAZOB 4.5 GM 4.5 GM in DEXTROSE 5%-WATER 100 ML IVPB SCH ×2 (01:27→09:24)
[2022-03-01] MEDS: VANCOMYCIN/WATER FOR INJ (PEG) 1,000 MG/200 ML BAG IVPB SCH (05:12)
[2022-03-01 15:07] VITALS: BP 107/62; PULSE 65; TEMP 98.7
== END 2022-03-01 17:25 | disposition home or self-care (01) | DRG 863 ==
LOC: JER 14:28 → JERBED 19:25 → OBSVTOIN 22:28 → J8W 23:44 → J7W 02-27 13:32
PROVIDERS: ADMIT Internal Medicine; ATTEND Internal Medicine
DX: T81.49XA Infection following a procedure, other surgical site, initial encounter (principal); N48.22 Cellulitis of corpus cavernosum and penis; E78.5 Hyperlipidemia, unspecified; Y83.9 Surgical procedure, unspecified as the cause of abnormal reaction of the patient, or of later complication, without mention of misadventure at the time of the procedure
CPT/HCPCS: 36415; 80048; 80053; 81003; 85025; 85610; 85730; 86850; 86900; 86901; 87070; 87076; 87086; 87205; 93005; 93010; 99284-25; C9803-CS; G0378; U0003; U0005

== ENCOUNTER 2022-06-09 15:35 | Emergency (ER) | payer OTHER ==
[2022-06-09 15:56] VITALS: BP 147/85; PULSE 79; RESP 16; TEMP 98.1; BMI 33.0
[2022-06-09] MEDS ORDERED: LIDOCAINE 5% TOPICAL PATCH TP ONE (19:52)
[2022-06-09] MEDS ORDERED: IBUPROFEN 600 MG TABLET (FP) PO ONE ×2 (19:52→19:57)
[2022-06-09] MEDS ORDERED: LIDOCAINE 5% TOPICAL PATCH ONE (19:57)
[2022-06-09] MEDS ORDERED: LIDOCAINE PATCH REMOVAL MC SCH (22:00)
== END 2022-06-10 03:03 | disposition home or self-care (01) ==
LOC: JER 15:35
DX: R51.9 Headache, unspecified (principal); V43.52XA Car driver injured in collision with other type car in traffic accident, initial encounter
CPT/HCPCS: 70450-TC; 70496-TC; 70498-TC; 72125-TC; 99285-25; Q9967